=== PATIENT | female | born 1960 | race Caucasian/White ===

== ENCOUNTER 2024-04-24 11:05 | Emergency (ER) | payer OTHER, SELFPAY ==
--- NOTE | ~2024-04-24 | XR_ITS ---
EXAMINATION: XR foot RT min 3V DATE: 04/24/2024 11:44 INDICATION: Hyperflexion injury to the distal right foot TECHNIQUE: Dorsoplantar, two oblique and lateral views of the right foot were obtained. COMPARISON: None. FINDINGS: Minimal distraction of an intra-articular avulsion fracture at the medial base of the right second pr oximal phalanx involving the footplate of the medial collateral ligament. There is no significant fra cture gap or incongruity at the articular surface. 2 mm widening of the metaphyseal side of the fract ure plane. Additional nearly identical appearing intra-articular avulsion fracture also the medial si de of the base of the fourth proximal phalanx. No other fractures identified. Mild polyarticular oste oarthritis at the first metatarsophalangeal and a few of the tarsal metatarsal and interphalangeal angelito ints. Moderate-sized Achilles calcaneal spur. Small osteophyte and adjacent heterotopic ossification at the dorsolateral margin of the anterior process of the calcaneus likely sequela of chronic injury to the bifurcate ligament. IMPRESSION: 1. Minimally distracted medial collateral ligament avulsion fractures at the medial bases of the righ t second and fourth proximal phalanges. Reviewed, dictated and finalized at location A. IMPRESSION: 1. Minimally distracted medial collateral ligament avulsion fractures at the me dial bases of the right second and fourth proximal phalanges.
[2024-04-24 11:12] VITALS: BP 171/91; PULSE 85; RESP 16; TEMP 36.1; O2SAT 100
--- NOTE | 2024-04-24 11:35 | ED.LOWEXIN ---
HPI - Extremity Injury (Lower) General Chief Complaint: Extremity Injury, Lower Stated Complaint: Right Foot Injury History of Present Illness HPI Narrative: Patient presents with right foot pain after stopping at the pool yesterday. Patient is states it hurts to walk on her right foot patient denies any other injuries. Related Data Home Medications Medication Instructions Recorded Confirmed atorvastatin 10 mg tablet 1 mg PO Q48H 04/24/24 04/24/24 estradiol 1 mg tablet 1 mg PO DAILY 04/24/24 04/24/24 levothyroxine 150 mcg tablet 150 mcg PO DAILY 04/24/24 04/24/24 losartan 25 mg tablet 25 mg PO BID 04/24/24 04/24/24 metformin 500 mg tablet 500 mg PO DAILY 04/24/24 04/24/24 metoprolol succinate 25 mg 25 mg PO DAILY 04/24/24 04/24/24 tablet,extended release 24 hr Allergies Allergy/AdvReac Type Severity Reaction Status Date / Time codeine AdvReac Severe Nausea and Verified 04/24/24 11:23 Vomiting tramadol [From Ultram] AdvReac Severe Nausea and Verified 04/24/24 11:23 Vomiting Review of Systems Review of Systems: CONSTITUTIONAL: Denies fever, chills, or sweats. EYES: Denies visual changes, redness, or discharge. ENT: Denies rhinorrhea, congestion, sore throat, or otalgia. CARDIOVASCULAR: Denies chest pain, palpitations, or edema. RESPIRATORY: Denies cough or dyspnea. GASTROINTESTINAL: Denies abdominal pain, nausea, vomiting, or diarrhea. GENITOURINARY: Denies dysuria or hematuria. SKIN: Denies rash or itching. MUSCULOSKELETAL: Denies back pain, joint pain, or myalgia. NEUROLOGIC: Denies headache, numbness, or weakness. PSYCHIATRIC: Denies anxiety or depression. PMFSH Comments At time of signature, agree with nursing past medical, surgical, social and family history. There is no relevant family history pertinent to the presenting complaint Exam Narrative: GENERAL: Well-appearing, well-nourished, and in no acute distress. HEAD: Normocephalic, atraumatic. EYES: PERRLA and EOMI. ENT: Nares clear, no rhinorrhea or epistaxis. Mucous membranes moist. NECK: Supple. CHEST: Clear to auscultation. No respiratory distress. HEART: Regular rate and rhythm. No murmur heard. Normal peripheral pulses. ABDOMEN: Soft, nontender, nondistended, normal active bowel sounds. EXTREMITIES: Normal range of motion. No edema.right footSKIN INTACT. NORMAL DP PULSE, NORMAL CAP REFILL. NORMAL SENSATION. SKIN: Warm, dry, no rash. NEURO: No focal deficits. Alert and oriented x3. Wagoner Coma Scale Eye Opening: Spontaneous 4 Kobe Coma Scale Motor: Obeys Commands 6 Kobe Coma Scale Verbal: Oriented 5 Wagoner Coma Scale Total 15 Course Course Level of Care: Express Care Visit Vital Signs Vital signs: Vital Signs Temperature 36.1 C L 04/24/24 11:12 Pulse Rate 85 04/24/24 11:12 Respiratory Rate 16 04/24/24 11:12 Blood Pressure 171/91 H 04/24/24 11:12 Pulse Oximetry 100 04/24/24 11:12 Oxygen Delivery Room Air 04/24/24 11:12 Temperature 36.1 C L 04/24/24 11:12 Pulse Rate 85 04/24/24 11:12 Respiratory Rate 16 04/24/24 11:12 Blood Pressure 171/91 H 04/24/24 11:12 Pulse Oximetry 100 04/24/24 11:12 Oxygen Delivery Room Air 04/24/24 11:12 MDM - Extremity Injury (Lower) Imaging Data Radiologist's impression: Minimally distracted medial collateral ligament avulsion fractures at the medial bases of the right second and fourth proximal phalanges. Discharge Plan Discharge Clinical Impression: Injury of foot, right Patient Disposition: Home, Self-Care Condition: Stable Instructions: Foot Contusion (ED) Additional Instructions: Ice to the area 20-30 minutes 4-6 times a day Elevate above heart orthopedic splint as directed for comfort for the next 5-7 days follow up with orthopedic director information security Dr Oneal call office in am for follow up appointment Tylenol for lesser pain Ibuprofen regularly for the next 2-3 days for the inflammation Follow-up with PCP if fu
== END 2024-04-24 12:10 | disposition home or self-care (01) ==
PROVIDERS: Emergency Provider Nurse Practitioner Family; PCP Family Medicine
DX: S99.921A Unspecified injury of right foot, initial encounter (principal); X58.XXXA Exposure to other specified factors, initial encounter; E78.00 Pure hypercholesterolemia, unspecified; E11.9 Type 2 diabetes mellitus without complications; E89.0 Postprocedural hypothyroidism; Z85.850 Personal history of malignant neoplasm of thyroid
CPT/HCPCS: 73630; 99213; G0463

== ENCOUNTER 2024-04-27 12:52 | Outpatient (CLI) | payer OTHER, SELFPAY ==
--- NOTE | ~2024-04-27 | CT_ITS ---
EXAMINATION: CT foot RT wo con DATE: 04/27/2024 13:15 INDICATION: Right foot pain. TECHNIQUE: Computed tomography (CT) of the right foot was performed without intravenous contrast. Aut omated exposure control and iterative reconstruction technique were employed. The dose-length product was 302.28 mGy-cm. COMPARISON: Right foot radiograph 04/24/2024 FINDINGS: There are avulsion fractures of the medial bases of the second and fourth proximal phalange s in near-anatomic alignment. There is an old fracture of anterior process of calcaneus with nonunion . 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 There is mild osteoarthritis of some of the mi dfoot joints and interphalangeal joints. There are enthesophytes at the posterior and plantar aspects of calcaneal tuberosity. Achilles tendinopathy is noted. IMPRESSION: 1. Avulsion fractures of the medial bases of the second and fourth proximal phalanges. Reviewed, dictated and finalized at location A. IMPRESSION: 1. Avulsion fractures of the medial bases of the second and fourth proximal pha langes.
== END 2024-04-27 12:53 ==
LOC: GOSHIMG 12:53
PROVIDERS: PCP Family Medicine; Visit Provider Orthopaedic Surgery
DX: S92.511D Displaced fracture of proximal phalanx of right lesser toe(s), subsequent encounter for fracture with routine healing (principal); X58.XXXD Exposure to other specified factors, subsequent encounter
CPT/HCPCS: 73700

== ENCOUNTER 2025-10-01 15:16 | Emergency (ER) | payer MEDICARE, SELFPAY ==
--- NOTE | ~2025-10-01 | XR_ITS ---
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 Findings: Nondisplaced fracture of the distal radius with intra-articular extension. Severe degenerative changes of the first metacarpal carpal joint Soft tissue swelling. Impression: Distal radial fracture Reviewed, dictated and finalized at location P. SHELLER Impression: Distal radial fracture
--- NOTE | ~2025-10-01 | XR_ITS ---
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 Findings: Nondisplaced fracture of the distal radius with intra-articular extension. No significant degenerative changes. Soft tissue swelling. Impression: Distal radial fracture Reviewed, dictated and finalized at location P. 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
--- OUTSIDE RECORDS SUMMARY | 2025-10-01 15:21 | XMS_ITS | Encounter Summary ---
Author Organization [facility] Address [address] [place] [address] Phone Care Team Providers Care Skewer Up Name Role Phone Erik Davis MD Primary Care Provider [phone] Kentrell Fenton MD Unavailable Shankar Álvarez MD Unavailable Eugenio Thomason MD Unavailable [phone] Arnaldo Headley MD Unavailable [phone] Estefani Thorne APRN, PATIENTS TRANSPORTER Unavailable Juanjose Woodson MD Unavailable Reason for Visit * Reason Comments Medication Refill Encounter Details Date Type Department Care Team (Late st Contact Info) Description [facility]/12/[address] [facility] [facility] [address] [place] [address] Reanna Mchugh, [facility] [address] [place] [address] Medication Refill Social History Tobacco Use Types Packs/Day Years Used Date Smoking Tobacco: Every Day Smokeless Tobacco: Never Alcohol Use Standard Drinks/Week Comments Yes 0 (1 standard drink = 0.6 oz pur e alcohol) occasionally PHQ-2 Answer Date Recorded Total Score - Questions 1-9 0 07/0 05/2020 Comments No Sex and Gender Information Value Date Recorded Sex Assigned at Not on file Legal Sex Female 12:41 AM CDT Gender Identity Not on file Sexual Orientation Not on file documented as of this encounter Miscellaneous Notes * Telephone Encounter - Laxmi Machado RN - 10/12/2020 11:43 AM CST Medication failed the protocol, provider to review and approve the medication order if appropriate. Requested Prescriptions Pending Prescriptions Disp Refills estradiol (ESTRACE) 1 MG Tablet [Pharmacy Med Name: ESTRADIOL 1 MG TABLET] 90 Tab 3 Sig: TAKE 1 TABLET BY MOUTH EVERY DAY Not Delegated - CLOSING SPECIALIST: Estrogens Failed - 10/12/2020 8:45 AM Failed - This refill cannot be delegated Passed - Valid encounter within last 12 months Past Office Visits Recent Outpatient Visits 5 months ago Claudication of both lower extremities (HCC) [facility] Erik Monroy MD 1 year ago Thyroid nodule [facility] Erik Monroy MD 1 year ago Hypertension, essential [facility] Erik Monroy MD 2 years ago Hyperlipidemia, unspecified hyperlipidemia type [facility] Erik Monroy MD 2 years ago Enlarged thyroid [facility] Erik Monroy MD Upcoming Appointments Future Appointments In 3 weeks Erik Davis MD [facility] Medical [facility] Family Medicine [facility] In 2 months Kentrell Fenton MD [facility] Medical [facility] AGRICULTURAL EDUCATION PROFESSOR - Recent and Past Visits Recent Visits Date Type Provider Dept 05/08/20 Office Visit Erik Davis MD [facility] 10/06/19 Office Visit Erik Davis MD [facility] Showing recent visits within past 460 days with a meds authorizing provider and meeting all other requirements Future Appointments Date Type Provider Dept 11/08/20 Appointment Erik Davis MD [facility] Showing future appointments within next 90 days with a meds authorizing provider and meeting all other requirements Passed - Last BP in normal range BP Readings from Last 1 Encounters: 05/08/20 126/78 STANT BANQUET MANAGER documented in this encounter Plan of Treatment Upcoming Encounters Date Type Department Care Team (Late st Contact Info) Description 11/14/2025 1:45 PM ASSISTANT BANQUET MANAGER Office Visit [facility] Medical Group - Family Medicine [facility] [address] [place] [address] Erik Davis MD [address] [facility] [address] [place] [address] 12/11/2025 8:15 AM ASSISTANT BANQUET MANAGER Office Visit [facility] Endocrinology [facility] [address] [place] [address] Kentrell Fenton MD [address] [place] [address] 03/06/2026 10:00 AM CDT Office Visit [facility] On[facility] [address] [place] [phone] Eugenio Thomason MD [address] [place] [address] Discharge Disposition: Discharged to home or Selfcare documented as of this encounter Visit Diagnoses Not on filedocumented in this encounter Additional Health Concerns Assessment Noted Time PHQ-9 Depression Total Score: 0 05/08/20 20 1:06 PM CDT documented as of this encounter Care Teams Skewer Up Relationship Specialty Start Date End Date Erik Davis MD [address] [facility] [address] [place] [address] PCP - General Family Medicine 10/17/15 Kentrell Fenton MD [address] [facility] [address] [place] [address] Consulting Physician Endocrinology 08/22/22 Shankar Álvarez MD [address] [place] [address] Consulting Physician Medical Oncology 10/28/22 Eugenio Thomason MD [address] [place] [address] Consulting Physician Radiation Oncology 10/28/22 Arnaldo Headley MD [address] [facility] [address] [place] [address] Consulting Physician Otolaryngology 10/31/22 Estefani Thorne APRN, PATIENTS TRANSPORTER [address] [facility] [address] [place] [address] Nurse Practitioner Advanced Practice Nurse 05/27/22 Juanjose Woodson MD [address] [address] Consulting Physician Colon and Rectal Surgery 03/21/24 documented as of this encounter
--- OUTSIDE RECORDS SUMMARY | 2025-10-01 15:21 | XMS_ITS | Clinical Summary ---
Author Organization [facility] Address [address] [place] [address] Care Team Providers Care Commercial Field Inspector Name Role Phone Erik Davis MD Primary Care Provider [phone] Source Comments [facility],non-owned Affiliates and Associated Physician Practices is amultiple site organization consisting of ambulatory clinics and hospital sitesin [place], [place], [place] and [place]. This disclosure is being madepursuant to the Care Everywhere program and may not contain all information available regarding this patient. Last updated 18.[facility] [employer] Allergies Active Allergy Reactions Criticality Noted Date Comments Acetaminophen-Codeine Urticaria,Rash Medium 02/29/2016 Tramadol Nausea and/or Vomiting Low 08/06/2017 Medications * Be aware that medications may not be up to date on this document. Alwaysverify current medications with the patient. amLODIPine (NORVASC) 5 MG tablet Take 1 (one) tablet by mouth once daily 8 Active atorvastatin (LIPITOR) 10 MG tablet Take 1 (one) tablet by mouth every 2 days 8 Active metoprolol succinate XL 24hr (TOPROL XL) 25 MG tablet Take 1 (one) tablet by mouth once daily 3 8 Active Aspirin (ASPIR-81 PO) Take 81 mg by mouth once daily Active cetirizine (ZyrTEC) 10 MG tablet Take 1 (one) tablet by mouth once daily Active multivitamin daily tablet Take 1 (one) tablet by mouth daily with food Active Brooklyn-3 Fatty Acids (FISH OIL) 500 MG capsule Take by mouth 2 times daily Active naproxen sodium (ANAPROX DS) 550 MG tablet Take 1 (one) tablet by mouth 2 times daily as needed for Pain Active Cinnamon 500 MG Take 1 (one) tablet by mouth 2 times daily Active albuterol HFA (Proventil; Ventolin; Proair) 108 (90 Base) MCG/ACT inhaler Inhale 2 (two) puffs by mouth every 4 hours as needed 2 Active fluticasone-vi lanterol (Breo Ellipta) 100-25 MCG/ACT inhaler Inhale 1 (one) puff by mouth once daily 2 Active oxyCODONE, immediate release, (Roxicodone) 5 MG tablet Take 1 (one) tablet by mouth every 4 hours as needed 15 tablet 2 Active Additional Information Patient not taking.Reported on 11/19/2022 acetaminophen (Tylenol) 325 MG tablet Take 2 (two) tablets by mouth every 6 hours as needed Maximum allowable Acetaminophen amount = 4 Grams (4000 mg) / 24 hours. 40 tablet 1 2 Active ibuprofen (Motrin) 600 MG tablet Take 1 (one) tablet by mouth every 6 hours as needed 40 tablet 1 2 Active senna (Senokot) 8.6 MG tablet Take 1 (one) tablet by mouth once daily as needed for Constipation 20 tablet 1 2 Active Additional Information Patient not taking.Reported on 10/17/2022 calcitriol (Rocaltrol) 0.5 MCG capsule Take 1 (one) capsule by mouth 2 times daily 30 capsule 1 2 Active Additional Information Patient not taking.Reported on 11/19/2022 estradiol (Estrace) 1 MG tablet Take 1 (one) tablet by mouth once daily 3 Active levothyroxine (Synthroid) 150 MCG tablet Take 1 (one) tablet by mouth once daily 3 Active losartan (Cozaar) 25 MG tablet Take 1 (one) tablet by mouth 2 times daily 3 Active metFORMIN (Glucophage) 500 MG tablet Take 1 (one) tablet by mouth once daily 3 Active Active Problems Problem Noted Date Diagnosed Date Mass of right side of neck 10/13/2022 Neck pain 07/07/2018 Chronic prescription benzodiazepine use 03/10/20 18 Chronic joint pain 03/10/2018 Obesity (BMI 30-39.9) 12/09/2017 Abnormal thyroid ultrasound 10/05/2017 Thyroid nodule 09/17/2017 Thoracolumbar back pain 08/06/2017 Anxiety 11/11/2016 Hyperlipidemia 08/04/2016 Hypertension, essential 08/04/2016 Tobacco abuse 08/04/2016 Dyslipidemia 03/05/2016 Non morbid obesity 03/05/2016 Screening for breast cancer 03/05/2016 Type 2 diabetes mellitus, controlled 03/05/2016 Immunizations Immunization Administration Dates Next Due INFLUENZA VACCINE, TRIV. (AF LURIA, FLUZONE TRIVALENT; 6MO+) (IIV3) 11/02/2012 Covid Moderna primary monova lent 12+ yr 0.5mL 01/24/2021,12/30/2020 FLU VACCINE QUAD IIV4 SPLIT 0.25 ML IM 07/15/2016 HIB VACCINE 11/02/2012 INFLUENZA VACCINE, QUADR. (F LUZONE; FLULAVAL; FLUARIX; AFLURIA QUADRIVALENT; 6MO+), 0.5 ML (IIV4) 08/03/2023,08/28/2022,08/06/2021,2019,10/06/2019,10/07/2018,09/17/2017 PNEUMOCOCCAL PPSV23 11/02/2008 TD (AGE 7-ADULT) 11/02/2005 Family History Medical History Relation Name Comments Cancer - Other Father Cirrhosis Father Hyperlipidemia Father Hypertension Father CVA Mother Cancer - Other Mother Hypertension Mother Thyroid Disease Mother Relation Name Status Comments Father Mother Social History Tobacco Use Types Packs/Day Years Used Date Smoking Tobacco: Every Day Cigarettes 0.5 40 Smokeless Tobacco: Never Tobacco Cessation:Ready to Q uit: Not Asked; Counseling Given: Not Answered Alcohol Use Standard Drinks/Week Comments Not Currently 0 (1 standard drink = 0.6 oz pur e alcohol) AUDIT-C Answer Date Recorded Q1: How often do you have a drink containing alcohol? Never 10/13/2022 Q2: How many drinks containi ng alcohol do you have on a typical day when you are drinking? Patient does not drink Q3: How often do you have si x or more drinks on one occasion? Never 10/13/2022 Hunger Vital Sign Answer Date Recorded Within the past 12 months, y ou worried that your food would run out before you got the money to buy more. Never true 10/14/20 22 Within the past 12 months, t he food you bought just didn't last and you didn't have money to get more. Never true 10/14/2022 Comments Unknown Sex and Gender Information Value Date Recorded Sex Assigned at Not on file Legal Sex Female 2:13 PM CDT Gender Identity Not on file Sexual Orientation Not on file Last Filed Vital Signs Vital Sign Reading Time Taken Comments Blood Pressure 163/88 11/25/2023 1:00 PM INFRASTRUCTURE PROJECT MANAGER Pulse 122 11/25/2023 1:00 PM INFRASTRUCTURE PROJECT MANAGER Temperature 36.4 C (97.6 F) 10/15/2022 8:24 AM INFRASTRUCTURE PROJECT MANAGER Respiratory Rate 19 10/15/2022 8:24 AM INFRASTRUCTURE PROJECT MANAGER Oxygen Saturation 97% 10/15/2022 8:24 AM INFRASTRUCTURE PROJECT MANAGER Inhaled Oxygen Concentration - - Weight 93.9 kg (207 lb) 11/25/2023 1:00 PM INFRASTRUCTURE PROJECT MANAGER Height 170.2 cm (5' 7) 11/25/2023 1:00 PM INFRASTRUCTURE PROJECT MANAGER Body Mass Index 32.42 11/25/2023 1:00 PM INFRASTRUCTURE PROJECT MANAGER Plan of Treatment Health Maintenance Due Date Last Done Comments COLOGUARD (AGES 45-75) - COLON CA SCREENING 1960 COLON MONITORING 1960 COLONOSCOPY - COLON CA SCREENING 1960 CT COLONOGRAPHY - COLON CA SCREENING 1960 Colorectal Cancer Screening 1960 FIT - COLON CA SCREENING 1960 FLEX SIG - COLON CA SCREENING 1960 HIV SCREENING 1975 HEPATITIS C SCREENING 09/06/1978 PNEUMOCOCCAL VACCINE 50+ (2 of 2 - PCV) 11/02/2009 11/02/2008 ZOSTER VACCINE (1 of 2) 2010 DTAP/TDAP/TD VACCINES (2 - Td or Tdap) 11/02/2015 11/02/2005 LUNG CANCER SCREENING 09/16/2022 09/16/2021 DIABETES RETINOPATHY SCREENING 09/17/2022 DIABETES-FOOT EXAM WITH MONOFILAMENT 09/17/2022 DIABETES-HGB A1C 04/14/2023 10/14/2022 DIABETES-SERUM CREATININE 09/17/2023 09/17/2022 DEPRESSION SCREENING 11/02/2024 DIABETES - URINE PROTEIN SCREENING 11/02/2024 MAMMOGRAM 05/18/2025 05/18/2023, 05/02, 11/07/2019, Additional history exists COVID-19 VACCINE ( - 2024- season) 2025 08/25/2022, 08/27/2021, 01/24/2021, Additional history exists INFLUENZA VACCINE (#1) 2025 , 08/28/2022, 08/06/2021, Additional history exists Respiratory Syncytial Virus (RSV) Vaccine Pt: or over 60 yrs (1 - 1-dose 75+ series) 2035 HIB VACCINE Aged Out 11/02/2012 No longer eligi ble based on patient's age to complete this topic BONE DENSITY TESTING Completed 05/18/2023, 05/18/20 23 HEPATITIS B VACCINE Aged Out No longe r eligible based on patient's age to complete this topic HPV VACCINE Aged Out No longer eligi ble based on patient's age to complete this topic MENINGOCOCCAL (Group B) VACCINE SHARED DECISION-MAKING Aged Out No longer eligible based on patient's age to complete this topic MENINGOCOCCAL GROUPS A/C/Y/W VACCINE Aged Out No longer eligible based on patient's age to complete this topic Procedures Procedure Name Priority Date/Time Associated Diagnosis Comments HEMOGLOBIN A1C Routine 10/14/2022 3:27 AM INFRASTRUCTURE PROJECT MANAGER BASIC METABOLIC PANEL (CALCIUM TOTAL) Routine 09/17/2022 3:37 PM INFRASTRUCTURE PROJECT MANAGER Pre-op evaluation from Last 3 Months or Most Recently Relevant to Health Maintenance Results * (ABNORMAL) HEMOGLOBIN A1C (10/14/2022 3:27 AM INFRASTRUCTURE PROJECT MANAGER) Hemoglobin A1c 6.2(H) <=5.6 % 10/14/2022 10:06 AM [facility] Estimated Average Glucose 131 mg/dL 10/14/2022 10:06 AM [facility] Comment: HbA1c Interpretation: Normal : < 5.7% Pre-diabetes: 5.7-6.4% Diabetes: Equal to or greater than 6.5% Test results diagnostic of diabetes should be repeated for confirmation. Treatment target values recommended by ADA and other clinical organizations should be used to evaluate metabolic control in patients. Reference: [place] Diabetes Association, Standards of Care in Diabetes -2020 In patients 70 years and older consider HbA1c target range of 7.0-7.5% (Reference: Kelby Villavicencio et al. LIYAHDA. 2012) The Sebia assay for the measurement of HbA1c is a National Glycohemoglobin Standardization Program (NGSP) certified method. Blood BLOOD SPECIMEN / Unknown Lab Venipuncture / Unknown 10/14/2022 3:27 AM INFRASTRUCTURE PROJECT MANAGER 10/14/2022 4:17 AM INFRASTRUCTURE PROJECT MANAGER us Arnaldo Headley MD LAB - CHEMISTRY ORDERABLES Fi nal Result [facility] [address] [place] [address], [facility] [phone] * (ABNORMAL) BASIC METABOLIC PANEL (CALCIUM TOTAL) (09/17/2022 3:37 PM INFRASTRUCTURE PROJECT MANAGER) BUN 13 7 - 26 mg/dL 09/17/2022 4:28 PM [facility] Creatinine 0.57 0.56 - 0.96 mg/dL 09/17/2022 4:28 PM [facility] Sodium 139 136 - 145 mmol/L 09/17/2022 4:28 PM [facility] Potassium 4.1 3.5 - 4.5 mmol/L 09/17/2022 4:28 PM [facility] Chloride 104 98 - 107 mmol/L 09/17/2022 4:28 PM [facility] CO2 25 22 - 29 mmol/L 09/17/2022 4:28 PM [facility] Glucose 104 70 - 115 mg/dL 09/17/2022 4:28 PM [facility] Calcium 10.8(H) 8.4 - 10.2 mg/dL 09/17/2022 4:28 PM [facility] Anion Gap 14 8 - 18 09/17/2022 4:28 PM [facility] BUN/Creatinine Ratio 23 7 - 23 09/17/2022 4:28 PM [facility] Osmolality Calculated 288 270 - 300 mOsm/kg 09/17/2022 4:28 PM INFRASTRUCTURE PROJECT MANAGER [facility] eGFR by CKD-EPI >90 >=90 mL/min/1.7 3 m2 09/17/2022 4:28 PM INFRASTRUCTURE PROJECT MANAGER [facility] Blood BLOOD SPECIMEN / Unknown Lab Venipuncture / Unknown 09/17/2022 3:37 PM INFRASTRUCTURE PROJECT MANAGER 09/17/2022 3:59 PM INFRASTRUCTURE PROJECT MANAGER us Joy Montanez CREDIT COLLECTIONS MANAGER-TRIPLE AIR VALVE TESTER LAB - CHEMISTRY ORDERABL ES Final Result [facility] [address] [place] [address], [facility] [phone] from Last 3 Months or Most Recently Relevant to Health Maintenance Insurance [employer] Advance Directives * Full Code (Latest Code Status on File) Date Activated Date Inactivated Comments 10/13/2022 7:28 PM 10/15/2022 1:22 PM Care Teams Commercial Field Inspector Relationship Specialty Start Date End Date Erik Davis MD PCP - General 08/10/18
--- OUTSIDE RECORDS SUMMARY | 2025-10-01 15:21 | XMS_ITS | Clinical Summary ---
Author Organization [facility] Address [address] [place] [address] Phone Care Team Providers Care Truck Assembler Name Role Phone Unavailable Unavailable Unavailable Reason for Visit and Chief Complaint The Chief Complaint is: annual Problems Includes: Problems addressed during this encounter and other active Problems Current Visit Onset Date Resolved Date Provider Emiliana sanchez Status History of Abnormal Pap Smear of Cervix 06/07/2013 BUTCH LEON RN [facility] Active Last Documented On 06/07/2013 11:01AM ; [facility] Note: Unchanged History of Cervical Dysplasia 06/07/2013 BUTCH LEON RN [facility] Active Last Documented On 06/07/2013 11:01AM ; [facility] Note: Unchanged History of Diabetes Mellitus Type 2 06/07/2013 BUTCH LEON RN [facility] Active Last Documented On 06/07/2013 11:01AM ; [facility] Note: Unchanged History of Essential Hypertension Benign 06/07/2013 BUTCH LEON RN [facility] Active Last Documented On 06/07/2013 11:01AM ; [facility] Note: Unchanged History of Human Papilloma Virus Infection 06/07/2013 BUTCH LEON RN [facility] Active Last Documented On 06/07/2013 11:01AM ; [facility] Note: Unchanged History of Hyperlipidemia 06/07/2013 BUTCH LEON RN [facility] Active Last Documented On 06/07/2013 11:01AM ; [facility] Note: Unchanged Smoking Cigarettes 06/07/2013 BUTCH AN RN [facility] Active Last Documented On 06/07/2013 11:01AM ; [facility] Note: Unchanged Plan of Treatment - OTHER - Last Documented On 06/07/2013 11:01AM ; [facility] PHY ORDER/COMMENT RELEASE OF INFORMATION PCP FOR SEROLOGY LIPIDS, HGB A1C, LIVER ENZYMES ETC 2011 AND 2012 PHY ORDER/COMMENT 1 YR Follow-up PLEASE REMOVE CODE 82091 FIT ENTERED IN ERROR THANKS - Last Documented On 06/07/2013 11:01AM ; [facility] ? ASYMPT POSTMENO STATUSRadiology at Hosp: DEXA (to be scheduled) - Last Documented On 06/07/2013 11:01AM ; [facility] ? ROUTINE GYNECOLOGICAL EXAMLab: SUREPATH (REFL) - Last Documented On 06/07/2013 11:01AM ; [facility] ? SCREEN MAMMOGRAM NECRadiology at Hosp/*MAMMOGRAPHY: Mammography with u/s if indicated Instructions: Additional images/ultrasounds if indicated Please send to PCP - Last Documented On 06/07/2013 11:01AM ; [facility] PT TO CALL WITH ANY CHANGE IN STATUS PAP RESULTS TO BE CALLED TO PT , AND WILL RE VISIT ERT IF PT STOPS SMOKING 90 + DAYS ALL QUESTIONS ANSWERED WITH UNDERSTANDING VERBALIZED BY PT. - Last Documented On 06/07/2013 11:01AM ; [facility] RTC 1 YEAR - Last Documented On 06/07/2013 11:01AM ; [facility] Pending Tests Order Diagnosis Results Due Ordering P rovider Radiology @ other DEXA (to be scheduled) ASYMPT POSTMENO STATUS 06/21/13 BUTCH LEON RN [facility] Last Documented On 3 3:28PM ; [facility] Radiology @ other - *MAMMOGRAPHY Mammography with u/s if indicated SCREEN MAMMOGRAM NEC 06/21/13 BUTCH LEON RN [facility] Last Documented On 3 3:28PM ; [facility] Lab SUREPATH (REFL) 07/07/13 BUTCH AN RN [facility] Last Documented On 3 11:01AM ; [facility] Instructions to patient Instructions for patient : B reast Self Exam discussed and technique reviewed Last Documented On 3 8:34AM ; [facility] Instructed to call if excess melvin bleeding or abdominal/pelvic pain Last Documented On 3 8:34AM ; [facility] Instructions For Patient: Mo nthly Self Breast Exam Last Documented On 3 8:34AM ; [facility] Recommend diet and exercise at least 30 min three times per week Last Documented On 3 8:34AM ; [facility] Recommend CBC, TSH, fasting glucose, fasting lipid panel if patient aged 25 or older Last Documented On 3 8:34AM ; [facility] Recommend preventative vacci nation including but not limited to influenza/flu vaccine, DTP, Rubella, Hepatitis B vaccination series Last Documented On 3 8:34AM ; [facility] Education and Decision Aids were provided during visit for: Discussed smoking and drug u se PT DESIRES TO QUIT SMOKING AND WILL CONTACT DR. JASON FOR ZBAN RX CHANTIX NOT A COVERED RX Last Documented On 3 10:56AM ; [facility] Patient Education: Daily amado cium and vitamin D Last Documented On 3 8:34AM ; [facility] Patient Education: weight be aring exercise Last Documented On 3 8:34AM ; [facility] Patient will maintain adequa te intake of dietary Ca+ and Mg+ Last Documented On 3 8:34AM ; [facility] Assessments Includes: Assessments from this encounter Findings - MAMMOGRAM SCREENING - Last Documented On 06/07/2013 11:01AM ; [facility] - Routine gynecological exam - Last Documented On 06/07/2013 11:01AM ; [facility] - NORMAL FEMALE EXAM - Last Documented On 06/07/2013 11:01AM ; [facility] - Risk: tobacco use - Last Documented On 06/07/2013 11:01AM ; [facility] Instructions Includes: Instructions from this encounter Instructions to patient Instructions for patient : B reast Self Exam discussed and technique reviewed Last Documented On 3 8:34AM ; [facility] Instructed to call if excess melvin bleeding or abdominal/pelvic pain Last Documented On 3 8:34AM ; [facility] Instructions For Patient: Mo nthly Self Breast Exam Last Documented On 3 8:34AM ; [facility] Recommend diet and exercise at least 30 min three times per week Last Documented On 3 8:34AM ; [facility] Recommend CBC, TSH, fasting glucose, fasting lipid panel if patient aged 25 or older Last Documented On 3 8:34AM ; [facility] Recommend preventative vacci nation including but not limited to influenza/flu vaccine, DTP, Rubella, Hepatitis B vaccination series Last Documented On 3 8:34AM ; [facility] Education and Decision Aids were provided during visit for: Discussed smoking and drug u se PT DESIRES TO QUIT SMOKING AND WILL CONTACT DR. JASON FOR ZBAN RX CHANTIX NOT A COVERED RX Last Documented On 3 10:56AM ; [facility] Patient Education: Daily amado cium and vitamin D Last Documented On 3 8:34AM ; [facility] Patient Education: weight be aring exercise Last Documented On 3 8:34AM ; [facility] Patient will maintain adequa te intake of dietary Ca+ and Mg+ Last Documented On 3 8:34AM ; [facility] Medical Equipment - Implanted Devices Includes: Current Devices No Medical Equipment Recorded Medications Includes: Medications discussed during this encounter and other current Medications Current Medications (continue as prescribed) Benicar 20 MG OR TABS 06/07/2013 Provider: Diagnosis: Last Documented On 06/07/2013 8:38AM By CHAZ MORRELL ; [facility] Estrace 1 MG OR TABS 06/07/2013 Provider: Diagnosis: Last Documented On 06/07/2013 8:38AM By CHAZ MORRELL ; [facility] metFORMIN HCl 500 MG TABS 06/07/2013 Provider: Diagnosis: Last Documented On 06/07/2013 8:39AM By CHAZ MORRELL ; [facility] Lipitor 10 MG OR TABS 06/07/2013 Provider: Diagnosis: Last Documented On 06/07/2013 8:39AM By CHAZ MORRELL ; [facility] Trilipix 135 MG OR CPDR 06/07/2013 Provider: Diagnosis: Last Documented On 06/07/2013 8:39AM By CHAZ MORRELL ; [facility] Aspirin 81 MG OR TABS 06/07/2013 Provider: Diagnosis: Last Documented On 06/07/2013 8:39AM By CHAZ MORRELL ; [facility] ZyrTEC Allergy 10 MG OR CAPS 06/07/2013 Provider: Diagnosis: Last Documented On 06/07/2013 8:40AM By CHAZ MORRELL ; [facility] Fish Oil OIL 06/07/2013 Provider: Diagnosis: Last Documented On 06/07/2013 8:40AM By CHAZ MORRELL ; [facility] Medications Administered Includes: Administered Medications from this encounter No Administered Medications Recorded Vital Signs Includes: Vital Signs from this encounter Vital Name 06/07/2013 08:26A Blood Pressure Sitting L 138/80 BP Cuff Size Regular Height (in) 67 Weight (lb) 214 Body Mass Index (kg/m2) 33.5 Body Surface Area (m2) 2.1 Last Documented: On 06/07/2013 8:29AM ; [facility] Results Includes: Results discussed during this encounter No Results Recorded For Specified Dates History of Present Illness Includes: History of Present Illness from this encounter No History of Present Illness Recorded Social History Description 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[employer] 06/07/2013 Last Documented On 3 10:58AM ; [facility] Age of 1st intercourse was was 17 2012 Last Documented On 3 11:01AM ; [facility] Alcohol use occ 06/07/2013 Last Documented On 3 11:01AM ; [facility] Cigarette smoking 06/07/2013 Last Documented On 3 11:01AM ; [facility] Cigarette smoking 1 pack(s)/day 06/07/20 13 Last Documented On 3 11:01AM ; [facility] Exercising regularly 06/07/2013 Last Documented On 3 11:01AM ; [facility] In monogamous relationship 06/07/2013 Last Documented On 3 11:01AM ; [facility] Not using drugs 06/07/2013 Last Documented On 3 11:01AM ; [facility] Sexually active 06/07/2013 Last Documented On 3 11:01AM ; [facility] Sexually active with 1 partners in the l ast year 06/07/2013 Last Documented On 3 11:01AM ; [facility] Smoking status : Current everyday smoker 06/07/2013 Last Documented On 3 11:01AM ; [facility] Procedures and Surgical History Includes: Procedures from this encounter Procedures Code Diagnosis Performing Provider Service L ocation Service Date review immunization schedule Last Documented On 3 8:34AM ; [facility] explanation of plan Last Documented On 3 8:34AM ; [facility] junk-free diet including sodas Last Documented On 3 8:34AM ; [facility] medical regimen review Last Documented On 3 8:34AM ; [facility] Urged Exercise and Diet , exercise at le ast 30 min three times per week Last Documented On 3 8:34AM ; [facility] Pt received mammogram during year/prior year G81 11 Last Documented On 3 8:34AM ; [facility] vaginal Pap smear 18121 Last Documented On 3 8:34AM ; [facility] history of abnormal Pap smear of cervix Last Documented On 3 10:54AM ; [facility] Surgical History Last Updated History of total abdominal hysterectomy 1988 DYSPLASIA 06/07/2013 Last Documented On 3 11:01AM ; [facility] Surgical / procedural histor y saliva gland removed 2000 ~left ankle break repair 2010 ~neck fusion 2005 ~left ankle total replacement 201106/07/2013 Last Documented On 3 11:01AM ; [facility] History of hysterectomy 1988 1988 2012 Last Documented On 3 11:01AM ; [facility] Medical History Includes: Medical History addressed during this encounter Description Last Updated PCP DR. JASON 06/07/2013 Last Documented On 3 10:58AM ; [facility] History of cervical dysplasia 06/07/2013 Last Documented On 3 11:01AM ; [facility] History of human papilloma virus infecti on 06/07/2013 Last Documented On 3 11:01AM ; [facility] History of benign essential hypertension 06/07/2013 Last Documented On 3 11:01AM ; [facility] History of type 2 diabetes mellitus 04/2013 Last Documented On 3 11:01AM ; [facility] HTN NIDDM 06/07/2013 Last Documented On 3 8:38AM ; [facility] Vaginal delivery 06/07/2013 Last Documented On 3 11:01AM ; [facility] History of hyperlipidemia 06/07/2013 Last Documented On 3 11:01AM ; [facility] History of obesity 06/07/2013 Last Documented On 3 11:01AM ; [facility] A colonoscopy was performed 04/2013 Last Documented On 3 11:01AM ; [facility] 3 06/07/2013 Last Documented On 3 11:01AM ; [facility] History of menopause 06/07/2013 Last Documented On 3 11:01AM ; [facility] Last mammogram date: 200906/07/2013 Last Documented On 3 11:01AM ; [facility] Last pap smear date 200906/07/2013 Last Documented On 3 11:01AM ; [facility] LMP: 1988 06/07/2013 Last Documented On 3 11:01AM ; [facility] Para 3 06/07/2013 Last Documented On 3 11:01AM ; [facility] Family History Includes: Family History addressed during this encounter Description Last Updated Spouse name: Derek 06/07/2013 Last Documented On 3 11:01AM ; [facility] Family history of hypercholesterolemia d ad 06/07/2013 Last Documented On 3 11:01AM ; [facility] Family history of hypertension mom and d ad 06/07/2013 Last Documented On 3 11:01AM ; [facility] Review of Systems Includes: Review of Systems from this encounter Systemic: General overall feeling. Feeling fine. No symptoms and not tiring easily. No fever, no chills, no night sweats, no unusual bleeding, no post coital bleeding, and no recent weight change. No night sweats and no pain. Head: No headache. Neck: No neck pain and no swollen glands in the neck. Eyes: No vision problems. Breasts: No breast symptoms, no breast lump, no nipple discharge, no pain in breast, and patient performs self breast exams. Cardiovascular: No chest pain or discomfort, no palpitations, no intermittent leg claudication, and no varicosities. Pulmonary: No pulmonary symptoms, no dyspnea, no rapid breathing, no cough, and no wheezing. Gastrointestinal: No heartburn and no indigestion. No nausea, no vomiting, no abdominal pain, and no melena. No diarrhea, no constipation, and no bowel/bladder changes. Genitourinary: No hematuria, no change in urinary frequency, and was not increased. No incomplete emptying of bladder. No urinary loss of control and no dysuria. No genital lesion, no pain during intercourse, and no vaginal dryness. No vaginal discharge. Endocrine: No polydipsia, no temperature intolerance, no hot flashes, libido has not changed, and no loss of hair from the head. Hematologic: No blood clotting problems. Musculoskeletal: No back pain, no muscle aches, and no localized joint pain. Neurological: No dizziness. Psychological: No anxiety, no depression, and a desire to continue living. Skin: No pruritus. No skin lesions and no rash. Allergic and Immunologic: No hay fever. Mental Status Includes: Mental Status from this encounter Description Oriented to time, place, and person No anxiety A desire to continue living Functional Status Includes: Functional Status from this encounter No Functional Status Recorded Physical Exam Includes: Physical Exam from this encounter Allergies Includes: Active Allergies Substance Type Reaction Onset Date Resolved Date Statu s SEASONAL Allergy 06/07/2013 Active Last Documented On 3 8:40AM ; [facility] Encounters Encounter Provider Location Date Check-In Time Check-Out Time Diagnosis NEW BI REPORT DEVELOPER EXAM BUTCH LEON RN [facility] SPORTS BETTING MANAGER 06/07/20 13 8:15AM 9:01AM Normal Female Exam,Risk: Tobacco Use,Routine Gynecological Exam,Other Screening For Malignant Neoplasm of Breast Z12.39 Clinical Notes Includes: Clinical Notes from this encounter No Clinical Notes Recorded
--- OUTSIDE RECORDS SUMMARY | 2025-10-01 15:21 | XMS_ITS | Encounter Summary ---
Author Organization [facility] Address [address] [place] [address] Phone Care Team Providers Care Dry Cleaning Supervisor Name Role Phone Erik Davis MD Primary Care Provider [phone] Kentrell Fenton MD Unavailable Shankar Álvarez MD Unavailable [phone] Eugenio Thomason MD Unavailable [phone] Arnaldo Headley MD Unavailable Estefani Thorne APRN, CNP Unavailable Juanjose Woodson MD Unavailable Reason for Visit * Reason Comments Medication Refill Encounter Details Date Type Department Care Team (Late st Contact Info) Description 03/21/2023 Refill [facility] - Family Medicine [facility] [address] [place] [address] Erik Davis MD [address] [address] Medication Refill Social History Tobacco Use Types Packs/Day Years Used Date Smoking Tobacco: Every Day Cigarettes 1.3 47.1 Started: 1978 Smokeless Tobacco: Never Comments:Cutting down in 202 2 and down 0.5 ppd as of 10/29/2022. Alcohol Use Standard Drinks/Week Comments Yes 0 (1 standard drink = 0.6 oz pur e alcohol) Occasionally/socially. PHQ-2 Answer Date Recorded Total Score - Questions 1-9 0 05/2020 Education Answer Date Recorded What is the highest level of school you have completed or the highest degree you have received? Associate degree: occupational, technical, or vocational program 03/02/2023 Sexually Active Control Partners Comments Yes Comments No Sex and Gender Information Value Date Recorded Sex Assigned at Not on file Legal Sex Female 12:41 AM CDT Gender Identity Not on file Sexual Orientation Not on file COVID-19 Exposure Response Date Recorded In the last 10 days, have yo u been in contact with someone who was confirmed or suspected to have Coronavirus/COVID-19? No / Unsure 03/16/2023 6:40 AM CDT documented as of this encounter Miscellaneous Notes * Telephone Encounter - Cecilia Chairez RN - 03/23/2023 8:23 AM CDT Medication failed the protocol, provider to review and approve the medication order if appropriate. Requested Prescriptions Pending Prescriptions Disp Refills estradiol (ESTRACE) 1 MG Tablet [Pharmacy Med Name: ESTRADIOL 1 MG TABLET] 90 Tablet 2 Sig: TAKE 1 TABLET BY MOUTH EVERY DAY Not Delegated - Estrogen and Estrogen Combinations Protocol Failed - 03/21/2023 1:10 AM Failed - This refill cannot be delegated Failed - Up to date with pap smear Health Maintenance Passed - Visit with relevant provider in past 12 months or upcoming 90 days Recent Visits Date Type Provider Dept 03/09/23 Office Visit Erik Davis MD [facility] 12/08/22 Office Visit Erik Davis MD [facility] 08/28/22 Office Visit Erik Davis MD [facility] 04/28/22 Office Visit Erik Davis MD [facility] Showing recent visits within past 365 days and meeting all other requirements Future Appointments Date Type Provider Dept 06/09/23 Appointment Erik Davis MD [facility] Showing future appointments within next 90 days and meeting all other requirements documented in this encounter Plan of Treatment Upcoming Encounters Date Type Department Care Team (Late st Contact Info) Description 11/14/2025 1:45 PM GOLF INSTRUCTOR Office Visit [facility] Medical [facility] Family Medicine [facility] [address] [place] [address] Erik Davis MD [address] [place] [address] 12/11/2025 8:15 AM GOLF INSTRUCTOR Office Visit [facility] Endocrinology [facility] [address] [place] [phone] Kentrell Fenton MD [address] [phone] 03/06/2026 10:00 AM CDT Office Visit [facility] On[facility] Services [address] [place] [address] Eugenio Thomason MD [address] [place] [address] Discharge Disposition: Discharged to home or Selfcare documented as of this encounter Visit Diagnoses Not on filedocumented in this encounter Additional Health Concerns Assessment Noted Time PHQ-9 Depression Total Score: 0 05/08/20 20 1:06 PM CDT documented as of this encounter Care Teams Dry Cleaning Supervisor Relationship Specialty Start Date End Date Erik Davis MD [address] [address] PCP - General Family Medicine 10/17/15 Kentrell Fenton MD [address] [phone] Consulting Physician Endocrinology 08/22/22 Shankar Álvarez MD [address] [place] [address] Consulting Physician Medical Oncology 10/28/22 Eugenio Thomason MD [address] [place] [address] Consulting Physician Radiation Oncology 10/28/22 Arnaldo Headley MD [address] [address] Consulting Physician Otolaryngology 10/31/22 Estefani Thorne APRN, EMERITA [address] [address] Nurse Practitioner Advanced Practice Nurse 05/27/22 Juanjose Woodson MD [address] [address] Consulting Physician Colon and Rectal Surgery 03/21/24 documented as of this encounter
--- OUTSIDE RECORDS SUMMARY | 2025-10-01 15:21 | XMS_ITS | Clinical Summary ---
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 Name Role Phone Erik Davis MD Primary Care Provider [phone] Kentrell Fenton MD Unavailable Shankar Álvarez MD Unavailable Eugenio Thomason MD Unavailable [phone] Arnaldo Headley MD Unavailable [phone] Estefani Thorne APRN, AUTOMATIC LATHE TENDER Unavailable Juanjose Woodson MD Unavailable Allergies Active Allergy Reactions Criticality Noted Date Comments Codeine Rash Acetaminophen-Codeine Unknown,Hives,Rash Medium 2015 Reaction: RASH, HIVES, Tramadol Nausea,Other (see Comments) Low 08/06/2017 vomitting Medications cetirizine (ZYRTEC) 10 MG Tablet Take 10 mg by mouth daily. Active Aspirin 81 MG Tablet Take 81 mg by mouth daily. Active Zarephath-3 Fatty Acids (FISH OIL PO) Take by mouth 2 times daily. Active CINNAMON PO Take by mouth 2 times daily. Active Calcium Carbonate Antacid (TUMS E-X 750 PO) Take by mouth daily. Active estradiol (ESTRACE) 1 MG Tablet TAKE 1 TABLET BY MOUTH EVERY DAY 90 Tablet 2 05/26/20 25 Active losartan (COZAAR) 25 MG Tablet TAKE 1 TABLET BY MOUTH TWICE A DAY 180 Tablet 2 06/02/20 25 Active Multiple Vitamin (MULTI-VITAMIN PO) Take by mouth. Activ e levothyroxine (SYNTHROID) 137 MCG Tablet Take 1 Tablet by mouth daily. 90 Tablet 1 08/02/20 Active Tirzepatide (Mounjaro) 10 MG/0.5ML Solution Auto-injector 10 mg by Subcutaneous route once a week. 12 mL 08/24/20 25 Active Additional Information Patient taking differently:10 mg Subcutaneous,(No frequency reported), EVERY OTHER WEEK, Reported on 09/07/2025 metoprolol Succinate (TOPROL-XL) 25 MG TABLET SR 24 HR TAKE 1 TABLET BY MOUTH EVERY DAY 90 Tablet 1 09/29/20 25 Active atorvastatin (LIPITOR) 10 MG Tablet TAKE 1 TABLET BY MOUTH EVERY OTHER DAY 45 Tablet 1 09/29/20 Active atorvastatin (LIPITOR) 10 MG Tablet TAKE 1 TABLET BY MOUTH EVERY OTHER DAY 45 Tablet 1 04/02/20 25 025 Discontinued metoprolol Succinate (TOPROL-XL) 25 MG TABLET SR 24 HR TAKE 1 TABLET BY MOUTH EVERY DAY 90 Tablet 1 04/02/20 25 025 Discontinued Active Problems Problem Noted Date Diagnosed Date Abnormal mammogram 05/30/2025 Primary thyroid papillary carcinoma 03/07/2025 Overweight (BMI 25.0-29.9) 08/09/2024 Hypothyroidism 08/09/2024 Iatrogenic hypothyroidism 05/31/2024 Hyperlipidemia 02/02/2024 Status post radioactive iodine thyroid ablation 11/26/2023 Overview (11/26/2023): She received 100 mCi of I -131 11/14/2022. Polycythemia 03/09/2023 Long-term current use of levothyroxine Overview (10/31/2022): Held beginning 10/30/2022. History of thyroid cancer 10/20/2022 Cancer Staging:Pathologic stage from 10/29/2022:Stage II(pT1b, pN1b, cM0, Age at diagnosis: >= 55 years) - Signed by Eugenio Thomason MD on 10/31/2022 Overview (06/02/2023): Pathologic stage II (pT1b, pN1b, cM0, Age at diagnosis: >=55 years) well-differentiated papillary thyroid carcinoma. On 10/13/2022 at [facility] she was taken to the OR for a right neck dissection levels II through IV and total thyroidectomy with central neck dissection on the right. TSH 11/11/2022 was 56.100. Thyroglobulin tumor marker 11/14/2022 was 0.2 and thyroglobulin antibody was <1.8. On 11/14/2022 she received 100 mCi of I-131. Whole-body I-131 scan 11/21/2022 revealed at least 2 foci of uptake within the neck likely representing residual thyroid tissue, benign or malignant. No suspicious distant areas of uptake. She was then placed on TSH suppressive therapy with levothyroxine. Interstitial lung disease 02/04/20[address] lung nodules on CT 01/22/2022 Bronchiolitis 01/22/2022 Claudication of both lower extremities 0 High blood pressure 05/08/2020 Chronic prescription benzodiazepine use 03/10/20 18 Obesity (BMI 30-39.9) 12/09/2017 Thoracolumbar back pain 08/06/2017 Current smoker 08/04/2016 Overview (03/07/2025): 1/2 pack/day as per March 2025. Greater than 60-[id number]-[id number] smoking history. Type 2 diabetes mellitus treated without insulin 03/05/2016 Resolved Problems Problem Noted Date Diagnosed Date Resolved Date History of toe fracture 04/26/202405/04 Hyperglycemia 02/02/2024 05/31/2024 Screening for lung cancer 08/03/2023 Seasonal allergies 08/03/2023 4 History of colon polyps 03/09/202311/03 Bilateral leg edema 03/09/2023 11/26/19 24 Postmenopausal 03/09/2023 05/31/2024 Seasonal allergies 12/08/2022 3 Metastasis to cervical lymph node 10/20/2022 05/31/2024 Muscle spasm 10/20/2022 06/02/2023 H/O total thyroidectomy with right radical neck dissection 10/20/2022 05/31/2024 Insomnia 08/28/2022 06/02/2023 Lymphadenopathy 08/28/2022 10/31/2022 Noncompliance 04/28/2022 06/02/2023 Personal history of tobacco use 01/22/2022 06/02/2023 Chronic foot pain 12/03/2020 06/02/2023 Right leg paresthesias 05/08/202006/02 Left leg paresthesias 05/08/20202022 Leg edema 05/08/2020 11/26/2023 Gastroesophageal reflux disease 05/08/2020 11/26/2023 Vocal cord polyp 05/08/2020 06/02/2023 Seasonal allergies 04/06/2019 2 Neck pain 07/07/2018 06/02/2023 Chronic joint pain 03/10/2018 3 Abnormal thyroid ultrasound 10/05/2017 06/02/2023 Thyroid nodule 09/17/2017 10/31/2022 Anxiety 11/11/2016 11/26/2023 Hyperlipidemia 08/04/2016 06/02/2023 Hypertension, essential 08/04/2016 08/11/2022 Non morbid obesity 03/05/2016 3 Screening for breast cancer 03/05/2016 10/31/2022 Dyslipidemia 03/05/2016 06/02/2023 Encounters Date Type Department Care Team Description 09/29/2025 Refill [facility] [place] [address] [place] [address] Erik Davis MD Medication Refill 09/21/2025 Results Follow-Up [facility] - Endocrinology - [place] [address] [place] [address] Kentrell Fenton MD THYROID STIMULATING HORMONE (TSH), THYROXINE (T4) FREE 09/18/2025 Travel 09/07/2025 11:00 AM UX ENGINEER [facility] [address] [place] [address] Eugenio Thomason MD Primary thyroid papillary carcinoma (Primary Dx); Metastasis to cervical lymph node; Status post radioactive iodine thyroid ablation; H/O total thyroidectomy with right radical neck dissection; Iatrogenic hypothyroidism; Long-term current use of levothyroxine; Current smoker; Multiple lung nodules on CT Discharge Disposition: Discharged to home or Selfcare 09/07/2025 Travel 09/02/2025 Travel 08/24/2025 [facility] [address] [place] [address] Kentrell Fenton MD Medication Refill 08/21/2025 7:36 AM CDT - 08/21/2025 11:59 PM CDT Hospital [facility] [address] [place] [address] Eugenio Thomason MD Discharge Disposition: Discharged to home or Selfcare 08/21/2025 Travel 08/02/2025 Results Follow-Up [facility] Endocrin[facility] [address] [place] [address] Kentrell Fenton MD THYROID STIMULATING HORMONE (TSH), THYROXINE (T4) FREE 07/31/2025 Travel from Last 3 Months Immunizations Immunization Administration Dates Next Due Covid-19, Mrna, Lnp-s, PF, 1 00 mcg/0.5 mL Dose (Moderna) 01/24/2021,12/30/2020 Influenza Vaccine greater than 3 yrs 11/02/2012 Influenza Vaccine, Quadrivalent, PF 10/0 12/2022,08/28/2022,08/06/2021,2019,10/06/2019,10/07/2018,09/17/2017 Influenza, Injectable, Quadrivalent 07/15/2016 Influenza, Seasonal, Injecta ble, Undefined 11/02/2012 Influenza,Split Virus,Trivalent,Injectable,PF 08/09/2024 Pneumococcal Vaccine Adult - 23 Valent 11/02/2008 TD VACCINE 11/02/2005 Family History Medical History Relation Name Comments Heart Attack Brother No Known Problems Daughter 1 No Known Problems Daughter 2 Thyroid Disease Daughter 3 Cancer Father Armin Heart Attack Father Armin Heart Disease Father Armin Hypertension Father Armin Leukemia/Lymphoma Father Armin NHL Diabetes Maternal Grandfather Semaj Heart Disease Maternal Grandmother Cancer Mother Nathalie Hypertension Mother Nathalie Leukemia/Lymphoma Mother Nathalie CML treate d with Glevac. Did not pass from CML. Stroke Mother Nathalie Passed from CVA . Breast Cancer Paternal Aunt Rheumatoid Arthritis Sister Relation Name Status Comments Brother Daughter 1 Alive Daughter 2 Alive Daughter 3 Alive Father Armin Maternal Grandfather Semaj Maternal Grandmother Mother Nathalie Paternal Aunt Sister Alive Social History Tobacco Use Types Packs/Day Years Used Date Smoking Tobacco: Every Day Cigarettes 1.3 47.4 Started: 1978 Smokeless Tobacco: Never Tobacco Cessation:Ready to Q uit: Not Asked; Counseling Given: Not Answered Comments:Cutting down in 2021 and down 0.5 ppd as of 10/29/2022. Alcohol Use Standard Drinks/Week Comments Yes 0 (1 standard drink = 0.6 oz pur e alcohol) Social, don't drink weekly [employer] Util[employer] Answer Date Recorded In the past 12 months has [employer], gas, oil, or water [employer] threatened to shut off services in your home? Patient declined 01/29/2025 Social Connection and Isolation Panel Answer Date Recorded In a typical week, how many times do you talk on the phone with family, friends, or neighbors? Patient declined 01/29/2025 How often do you get togethe r with friends or relatives? Patient declined 01/29/2025 How often do you attend roman catholic or jainism serv ices? Patient declined 01/29/2025 Do you belong to any clubs o r organizations such as roman catholic groups, unions, fraternal or athletic groups, or school groups? Patient declined 01/29/2025 How often do you attend meet ings of the clubs or organizations you belong to? Patient declined 01/29/2025 Are you , , di vorced, , never , or living with a partner? 01/29/2025 AUDIT-C Answer Date Recorded Q1: How often do you have a drink containing alc ohol? Monthly or less 01/29/2025 Q2: How many drinks containi ng alcohol do you have on a typical day when you are drinking? 1 or 2 01/29/2025 Q3: How often do you have si x or more drinks on one occasion? Less than monthly 01/29/2025 Overall Financial Resource Strain (CARDIA) Answe r Date Recorded How hard is it for you to pa y for the very basics like food, housing, medical care, and heating? Patient declined 01/29/2025 PHQ-2 Answer Date Recorded Total Score - Questions 1-9 0 04/0 11/2024 [facility] - Occupational Stress Questionnaire Answer Date Recorded Do you feel stress - tense, restless, nervous, or anxious, or unable to sleep at night because your mind is troubled all the time - these days? Patient declined 01/29/2025 Exercise Vital Sign Answer Date Recorde d On average, how many days pe r week do you engage in moderate to strenuous exercise (like a brisk walk)? 7 days 01/29/2025 On average, how many minutes do you engage in exercise at this level? 60 min 01/29/2025 Hunger Vital Sign Answer Date Recorded Within the past 12 months, y ou worried that your food would run out before you got the money to buy more. Patient declined Within the past 12 months, t he food you bought just didn't last and you didn't have money to get more. Patient declined PRAPARE - Transportation Answer Date Re corded In the past 12 months, has l ack of transportation kept you from medical appointments or from getting medications? Patient declined 01/29/2025 In the past 12 months, has l ack of transportation kept you from meetings, work, or from getting things needed for daily living? Patient declined 01/29/2025 Housing Stability Vital Sign Answer Arun e Recorded In the last 12 months, was t here a time when you were not able to pay the mortgage or rent on time? Patient declined 01/30/20 25 Number of Times Moved in the Last Year Not on fi le 01/29/2025 At any time in the past 12 m [facility], were you homeless or living in a longterm (including now)? Patient declined 01/29/2025 Education Answer Date Recorded What is the highest level of school you have completed or the highest degree you have received? Associate degree: occupational, technical, or vocational program 03/02/2023 Sexually Active Control Partners Comments Yes Post-menopausal, None Male Same p artner for over 30 yrs. Comments No Sex and Gender Information Value Date Recorded Sex Assigned at Not on file Legal Sex Female 12:41 AM CDT Gender Identity Not on file Sexual Orientation Not on file Last Filed Vital Signs Vital Sign Reading Time Taken Comments Blood Pressure 130/80 09/07/2025 11:00 AM UX ENGINEER Pulse 77 09/07/2025 11:00 AM UX ENGINEER Temperature 36.8 C (98.3 F) 09/07/2025 11:00 AM UX ENGINEER Respiratory Rate 16 09/07/2025 11:00 AM UX ENGINEER Oxygen Saturation 98% 09/07/2025 11:00 AM UX ENGINEER Inhaled Oxygen Concentration - - Weight 61.7 kg (136 lb) 09/07/2025 11:00 AM UX ENGINEER Height 167.6 cm (5' 6) 09/07/2025 11:00 AM UX ENGINEER Body Mass Index 21.95 09/07/2025 11:00 AM UX ENGINEER Plan of Treatment Upcoming Encounters Date Type Department Care Team (Late st Contact Info) Description 11/14/2025 1:45 PM UX ENGINEER [facility] - [facility] Medicine [facility] [address] [place] [address] Erik Davis MD [address]2 [facility] [address] [place] [address] 12/11/2025 8:15 AM UX ENGINEER [facility] [place] [address] [place] [address] Kentrell Fenton MD [address] [facility] [address] [place] [address] 03/06/2026 10:00 AM CDT [facility] [address] [place] [address] uEgenio Thomason MD [address] [place] [address] Discharge Disposition: Discharged to home or Selfcare Health Maintenance Due Date Last Done Comments Diabetes: Eye Exam 1960 TdaP Immunization 1960 Zoster Immunization (1 of 2) 1979 Cologuard 2005 Immunochemical Fecal Occult Blood 2005 Pneumococcal Immunization (50+ years) (2 of 2 - PCV) 11/02/2009 11/02/2008 Respiratory Syncytial Virus (RSV) Immunization (Adult) (1 - Risk 50-74 years 1-dose series) 2010 Lung Cancer Screening 03/03/2023 03/03/2022, 021 DEXA Bone Density 05/18/2025 05/18/2023 Influenza Immunization (#1) 2025 100 06/2024, 08/03/2023, 08/28/2022, Additional history exists SARS-COV-2 Immunization ( season) 2025 08/25/2022, 08/27/2021, 01/24/2021, Additional history exists Welcome to Medicare (IPPE) G0402 09/02/2025 Diabetes: Hemoglobin A1c 12/06/2025 025, 02/22/2025, 08/01/2024, Additional history exists Diabetes: Foot Exam 03/21/2026 03/21/2025 Diabetes: Nephropathy Screening 05/27/2026 05/27/2025, 02/22/2025, 08/01/2024, Additional history exists Mammogram 05/29/2026 05/29/2025, 05/02, 11/07/2019, Additional history exists Colonoscopy 06/06/2029 06/06/2024, 03/2024, 06/06/2024, Additional history exists Colorectal Cancer Screening 06/06/2029 Pneumococcal Immunization Combined Discontinued 11/02/2008 Hepatitis C Virus (HCV) Screening Completed 10/08/2017 Hepatitis B Immunization Aged Out No longer eligible based on patient's age to complete this topic Human Papillomavirus (HPV) Immunization Aged Out No longer eligible based on patient's age to complete this topic Meningococcal Immunization (ACWY) Aged Out No longer eligible based on patient's age to complete this topic Rotavirus Immunization Aged Out No lo nger eligible based on patient's age to complete this topic Goals Goal Patient Goal Type Associated Problems Recent Progress Patient-Stated? Author Help patient manage hypertension Care Plan MCCP HYPERTENSION CONCERN (PATIENT NOT ON HIGH BLOOD PRESSURE MEDICATIONS) No Erik Davis MD Help patients manage type 2 diabetes Care Plan MCCP TYPE 2 DIABETES CONCERN No Erik Davis MD Help patient manage blood glucose Care Plan MCCP TYPE 2 DIABETES METFORMIN PATTERN CONCERN No Erik Davis MD Procedures Procedure Name Priority Date/Time Associated Diagnosis Comments THYROXINE (T4) FREE Routine 09/18/2025 8 :36 AM UX ENGINEER Postoperative hypothyroidism Medication dose changed THYROID STIMULATING HORMONE (TSH) Routine 09/18/2025 8:36 AM UX ENGINEER Postoperative hypothyroidism Medication dose changed THYROID STIMULATING HORMONE (TSH) Routine 09/02/2025 9:01 AM CDT Iatrogenic hypothyroidism Long-term current use of levothyroxine THYROGLOBULIN,TUMOR MRK,S,ZEBULON HTG2 Routine 09/02/2025 9:01 AM CDT 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 H/O total thyroidectomy with right radical neck dissection Status post radioactive iodine thyroid ablation US THYROID Routine 08/21/2025 8:17 AM CDT Primary thyroid papillary carcinoma THYROXINE (T4) FREE Routine 07/31/2025 7 :45 AM CDT Postoperative hypothyroidism THYROID STIMULATING HORMONE (TSH) Routine 07/31/2025 7:45 AM CDT Postoperative hypothyroidism POCT GLYCOSYLATED HEMOGLOBIN Routine 06/05/2025 8:50 AM CDT Type 2 diabetes mellitus without complication, without long-term current use of insulin ABUNDIO SCREENING BILATERAL DIGITAL W CAD W DORA Routine 05/29/2025 8:25 AM CDT Encounter for screening mammogram for breast cancer CMP (COMPREHENSIVE METABOLIC PANEL) Routine 05/27/2025 8:05 AM CDT Postoperative hypothyroidism Type 2 diabetes mellitus without complication, without long-term current use of insulin GI IMAGING - COLONOSCOPY Routine 06/06/2024 8:27 AM CDT ABUNDIO BONE DENSITOMETRY AXIAL SKELETON Routine 05/18/2023 1:[address] HIGH RESOLUTION CHEST COMPLETE Routine 03/03/2022 10:34 AM CDT Interstitial lung disease (HCC) HEPATITIS C ANTIBODY Routine 10/08/2017 9:29 AM UX ENGINEER Encounter for hepatitis C screening test for low risk patient from Last 3 Months or Most Recently Relevant to Health Maintenance Results * THYROXINE (T4) FREE (09/18/2025 8:36 AM UX ENGINEER) Only the most recent of2 resultswithin the time period is included. T4 FREE 1.4 0.7 - 1.9 ng/dL 09/18/2025 11:05 AM UX ENGINEER [facility] Blood Venipuncture / Unknown 09/18/2025 8:36 AM UX ENGINEER 09/18/2025 10:23 AM UX ENGINEER us Kentrell Fenton MD CHEMISTRY ORDERABLES Final Resul t [facility] #[address] [place] [address] * THYROID STIMULATING HORMONE (TSH) (09/18/2025 8:36 AM UX ENGINEER) Only the most recent of3 resultswithin the time period is included. TSH 1.364 0.300 - 5.000 mIU/L 09/18/2025 11:05 AM UX ENGINEER [facility] Blood Venipuncture / Unknown 09/18/2025 8:36 AM UX ENGINEER 09/18/2025 10:23 AM UX ENGINEER us Kentrell Fenton MD CHEMISTRY ORDERABLES Final Resul t [facility] [address] [place] [address] * THYROGLOBULIN,TUMOR MRK,S,FORRESTER HTG2 (09/02/2025 9:01 AM CDT) THYROGLOBULIN ANTIBODY, S <1.8 <1.8 IU/mL 09/06/2025 6:16 PM [facility] THYROGLOBULIN, TUMOR MARKER, S <0.1 < or = 33 ng/mL 09/06/2025 6:16 PM [facility] THYROGLOBULIN INTERPRETATION SEE NOTE 09/06/2025 6:16 PM [facility] Comment: Thyroglobulin (Tg) reference intervals are for patients with an intact thyroid and not for patients who have had surgery for thyroid cancer. Tg reference intervals in patients that have undergone thyroidectomy or any treatment for follicular thyroid cancer are dependent on the residual mass of the thyroid tissue after surgery. Tg results, regardless of concentration, should not be interpreted as absolute evidence for the presence or absence of papillary or follicular thyroid cancer. This result needs to be interpreted in the context of the clinical evaluation. ADDITIONAL INFORMATION PLEASE NOTE: The given cutoff of <1.8 IU/mL is for the detection of potential thyroglobulin antibody (TgAb) interference in thyroglobulin immunoassays. A thyroglobulin antibody (TgAb) reference cutoff of <4.0 IU/mL may be more suitable for the evaluation of autoimmune thyroiditis. The thyroglobulin and thyroglobulin antibody testing methods are immunoenzymatic assays manufactured by [employer] and performed on the [employer] DXI 800. Values obtained from different assay methods or kits may be different and cannot be used interchangeably. The results cannot be interpreted as absolute evidence for the presence or absence of malignant disease. Test Performed by: [facility] [address] [place] [address] Senior Interactive Producer: Anastasiia Kennedy Ph.D.; CLIA# [id number] Blood Venipuncture / Unknown 09/02/2025 9:01 AM CDT 09/02/2025 9:57 AM CDT Eugenio Thomason MD LAB SEND OUTS Final R esult [facility] US * US THYROID (08/21/2025 8:17 AM CDT) Anatomical Region Laterality Modality BODY N/A Ultrasound 08/21/2025 7:36 AM CDT Impressions 08/21/2025 7:55 PM CDT IMPRESSION: * Status post thyroidectomy. No residual disease at the surgical bed. * Elongated right neck lymph node measuring 1.8 cm long axis with a fatty hilum is most likely reactive. Attention on follow-up. Narrative 08/21/2025 7:55 PM CDT US THYROID EXAM DATE: 08/21/2025 7:49 AM HISTORY: 64 years year old Female. Malignant neoplasm of thyroid gland TECHNIQUE: Ultrasound images of the thyroid. COMPARISON: Comparison made with previous examination(s) dated ([place]) 17-May-2024,([place]) 25-May-2023. FINDINGS: The thyroid gland is surgically absent. No residual disease is noted at the surgical bed. An elongated right neck lymph node measuring 1.8 x 0.6 x 1.1 cm demonstrates a fatty hilum is most likely a reactive lymph node. This was not present on the prior exam, attention on follow-up. Procedure Note Jorge Phillips MD - 08/21/2025 US THYROID EXAM DATE: 08/21/2025 7:49 AM HISTORY: 64 years year old Female. Malignant neoplasm of thyroid gland TECHNIQUE: Ultrasound images of the thyroid. COMPARISON: Comparison made with previous examination(s) dated ([place])17-May-2024,([place]) 25-May-2023. FINDINGS: The thyroid gland is surgically absent. No residual disease is noted atthe surgical bed. An elongated right neck lymph node measuring 1.8 x 0.6 x1.1 cm demonstrates a fatty hilum is most likely a reactive lymph node.This was not present on the prior exam, attention on follow-up. IMPRESSION: * Status post thyroidectomy. No residual disease at the surgical bed. * Elongated right neck lymph node measuring 1.8 cm long axis with a fattyhilum is most likely reactive. Attention on follow-up. Eugenio Thomason MD [facility] US ORDERABLES Final Result * POCT GLYCOSYLATED HEMOGLOBIN (06/05/2025 8:50 AM CDT) HGB-A1C 5.4 4 - 6 % Blood 06/05/2025 8:5 0 AM CDT us Kentrell Fenton MD POINT OF CARE TESTING (MANUAL) F inal Result * ABUNDIO SCREENING BILATERAL DIGITAL W CAD W DORA (05/29/2025 8:25 AM CDT) Anatomical Region Laterality Modality breast Bilateral Mammography 05/29/2025 7:51 AM CDT Narrative 05/30/2025 9:51 AM CDT - ABUNDIO SCREENING BILATERAL DIGITAL W CAD W DORA BILATERAL DIGITAL SCREENING MAMMOGRAM 3D/2D WITH CAD WITH MEDIOLATERAL OBLIQUE CRANIOCAUDAL: 05/29/2025 The study was acquired using digital technology and interpreted from soft copy. Current study was also evaluated with ICAD version 7.2. 2D digital mammographic views, as well as 3D digital tomosynthesis were performed in the CC and MLO projections. CLINICAL: Routine screening. Patient has no complaints. She reports an 80 pound weight loss since her last mammogram in 2022. Personal history of thyroid cancer. Paternal aunt had breast cancer. COMPARISONS: Comparison is made to exams dated: 05/18/2023, 11/07/2019, and 07/28/2018 [facility]. BREAST TISSUE:There are scattered areas of fibroglandular density. FINDINGS: There is a focal asymmetry in the left breast at 12 o'clock posterior depth. No other significant masses, calcifications, or other findings are seen in either breast. IMPRESSION: INCOMPLETE: NEED ADDITIONAL IMAGING EVALUATION The focal asymmetry in the left breast is indeterminate. An immediate follow-up is recommended. A letter will be sent to the patient with these results. Electronically signed by: Martha calvo/penrad:05/29/2025 20:27:16 Hospital Insurance Clerk(s): RT Arlen(R)(M), [facility] letter sent: Additional Imaging Reading location: DIGGS Mammogram BI-RADS: Category 0: Incomplete: Need Additional Imaging Evaluation Procedure Note Martha Aguilar MD - 05/30/2025 - ABUNDIO SCREENING BILATERAL DIGITAL W CAD W DORA BILATERAL DIGITAL SCREENING MAMMOGRAM 3D/2D WITH CAD WITH MEDIOLATERAL OBLIQUE CRANIOCAUDAL: 05/29/2025 The study was acquired using digital technology and interpreted from soft copy. Current study was also evaluated with ICAD version 7.2. 2D digital mammographic views, as well as 3D digital tomosynthesis were performed in the CC and MLO projections. CLINICAL: Routine screening. Patient has no complaints. She reports an 80 pound weight loss since her last mammogram in 2022. Personal history of thyroid cancer. Paternal aunt had breast cancer. COMPARISONS: Comparison is made to exams dated: 05/18/2023, 11/07/2019, and 07/28/2018 [facility]. BREAST TISSUE:There are scattered areas of fibroglandular density. FINDINGS: There is a focal asymmetry in the left breast at 12 o'clock posterior depth. No other significant masses, calcifications, or other findings are seen in either breast. IMPRESSION: INCOMPLETE: NEED ADDITIONAL IMAGING EVALUATION The focal asymmetry in the left breast is indeterminate. An immediate follow-up is recommended. A letter will be sent to the patient with these results. Electronically signed by: Martha calvo/penrad:05/29/2025 20:27:16 Hospital Insurance Clerk(s): RT Arlen(R)(M), [facility] letter sent: Additional Imaging Reading location: DIGGS Mammogram BI-RADS: Category 0: Incomplete: Need Additional Imaging Evaluation us Erik Davis MD IMG MAMMO ORDERABLES Alysa l Result * (ABNORMAL) CMP (COMPREHENSIVE METABOLIC PANEL) (05/27/2025 8:05 AM CDT) SODIUM 139 136 - 145 mmol/L 05/27/2025 10:44 AM CDT [facility] POTASSIUM 4.5 3.5 - 5.1 mmol/L 05/27/2025 10:44 AM CDT [facility] CHLORIDE 105 98 - 107 mmol/L 05/27/2025 10:44 AM CDT [facility] CO2, VENOUS 25 22 - 30 mmol/L 05/27/2025 10:44 AM CDT [facility] ANION GAP 13.5 <18.0 mmol/L 05/27/2025 10:44 AM CDT [facility] GLUCOSE 92 70 - 99 mg/dL 05/27/2025 10:44 AM CDT [facility] BUN 17 10 - 20 mg/dL 05/27/2025 10:44 AM CDT [facility] CREATININE, BLOOD 0.64 0.60 - 1.00 mg/dL 05/27/2025 10:44 AM CDT [facility] BUN/CREATININE RATIO 27(H) 12 - 20 ratio 05/27/2025 10:44 AM CDT [facility] TOTAL PROTEIN 7.3 6.0 - 8.0 g/dL 05/27/2025 10:44 AM CDT [facility] ALBUMIN 4.2 3.5 - 5.0 g/dL 05/27/2025 10:44 AM CDT [facility] A/G RATIO 1.4 1.0 - 2.2 05/27/2025 10:44 AM CDT [facility] CALCIUM 9.4 8.7 - 10.5 mg/dL 05/27/2025 10:44 AM CDT [facility] T BILI 0.4 0.2 - 1.2 mg/dL 05/27/2025 10:44 AM CDT [facility] SGOT (AST) 22 <43 U/L 05/27/2025 10:44 AM CDT [facility] SGPT (ALT) 17 <56 U/L 05/27/2025 10:44 AM CDT [facility] ALKALINE PHOSPHATASE 56 40 - 150 U/L 05/27/2025 10:44 AM CDT [facility] IS THE PATIENT REQUIRED TO BE FASTING? No 05/27/2025 10:44 AM CDT [facility] GFR, ESTIMATED >60 >=60 05/27/2025 10:44 AM CDT [facility] Comment: Creatinine Clearance is the preferred criteria for selecting drug dose adjustments in renally impaired patients. The GFR is provided as additional pertinent clinical information. GFR is reported in mL/min/1.73 sq m. Calculation based on the Chronic Kidney Disease Epidemiology Collaboration (CKD- EPI) equation refit without adjustment for race. GFR, EST. >60 >=60 025 10:44 AM CDT [facility] GFR, EST. NONAFRICAN >60 >=60 05/27/2025 10:44 AM CDT [facility] Blood Venipuncture / Unknown 05/27/2025 8:05 AM CDT 05/27/2025 9:25 AM CDT us Kentrell Fenton MD CHEMISTRY ORDERABLES Final Resul t [facility] [address] [place] [address] * GI IMAGING - COLONOSCOPY (06/06/2024 8:27 AM CDT) us Juanjose Woodson MD IMG DIAGNOSTIC ORDERABLES Final Result * ABUNDIO BONE DENSITOMETRY AXIAL SKELETON (05/18/2023 1:00 PM CDT) Anatomical Region Laterality Modality BODY N/A Computed Radiogr aphy 05/18/2023 2:06 PM CDT Impressions 05/18/2023 2:09 PM CDT IMPRESSION: Normal bone mass. REFERENCE: Bone mineral density: Normal (T-score above or = -1.0) Low bone mass (T-score between -1.0 and -2.5) replaces the previously used term osteopenia Osteoporosis (T-score = or below -2.5) Medical evaluation for secondary causes of low bone mineral density may be appropriate. FRAX is a World Health Organization validated fracture risk assessment tool that calculates a person's 10 year probability of a major osteoporosis related fracture and hip fracture. According to the National Osteoporosis Foundation guidelines, postmenopausal women and men age 50 or older with low bone mass and a 10 year probability of a major osteoporosis related fracture = or greater than 20% or a 10 year probability of a hip fracture = or greater than 3% should be considered for treatment. For further information, including treatment recommendations, please refer to the 2019 ISCD Official Positions (http://www.iscd.org) and the NOF's Clinician's Guide to Prevention and Treatment of Osteoporosis (http://www.nof.org/professionals/clinical-guidelines) Narrative 05/18/2023 2:09 PM CDT EXAM DESCRIPTION: ABUNDIO BONE DENSITOMETRY AXIAL SKELETON REASON FOR STUDY: 62 y/o year old F with given history of: post menopause [employer]ner/Model: [employer] (S/N [id number]) CLINICAL INFORMATION: Current height: 66 inches Maximum height: 66 inches Weight: 221 pounds Risk factors: Current smoker. History of adult fracture. Menopausal. COMPARISON: None available FINDINGS: AP LUMBAR SPINE L1-L4: Total BMD is 1.330 g/cm2 T-score is 1.1 LEFT HIP: Total BMD is 1.161 g/cm2 T-score is 1.2 Femoral neck BMD is 1.085 g/cm2 T-score is 0.3 FRAX: 10 year risk for a major osteoporotic fracture is 9.4 %, 10 year risk for a hip fracture is 0.3 % THIS IS AN ELECTRONICALLY VERIFIED FINAL REPORT 05/18/2023 2:06 PM - Electronically signed by Andrea Ashraf M.D. KR: KR Report ID: [id number] Reading Location: [place] [address] Procedure Note Andrea Ashraf MD - 05/18/2023 EXAM DESCRIPTION: ABUNDIO BONE DENSITOMETRY AXIAL SKELETON REASON FOR STUDY: 62 y/o year old F with given history of: post menopause [employer]ner/Model: [employer] (S/N [id number]) CLINICAL INFORMATION: Current height: 66 inches Maximum height: 66 inches Weight: 221 pounds Risk factors: Current smoker. History of adult fracture. Menopausal. COMPARISON: None available FINDINGS: AP LUMBAR SPINE L1-L4: Total BMD is 1.330 g/cm2 T-score is 1.1 LEFT HIP: Total BMD is 1.161 g/cm2 T-score is 1.2 Femoral neck BMD is 1.085 g/cm2 T-score is 0.3 FRAX: 10 year risk for a major osteoporotic fracture is 9.4 %, 10 year risk for a hip fracture is 0.3 % THIS IS AN ELECTRONICALLY VERIFIED FINAL REPORT 05/18/2023 2:06 PM - Electronically signed by Andrea Ashraf M.D. KR: KR Report ID: [id number] Reading Location: [place] [address] IMPRESSION: Normal bone mass. REFERENCE: Bone mineral density: Normal (T-score above or = -1.0) Low bone mass (T-score between -1.0 and -2.5) replaces the previously used term osteopenia Osteoporosis (T-score = or below -2.5) Medical evaluation for secondary causes of low bone mineral density may be appropriate. FRAX is a World Health Organization validated fracture risk assessment tool that calculates a person's 10 year probability of a major osteoporosis related fracture and hip fracture. According to the National Osteoporosis Foundation guidelines, postmenopausal women and men age 50 or older with low bone mass and a 10 year probability of a major osteoporosis related fracture = or greater than 20% or a 10 year probability of a hip fracture = or greater than 3% should be considered for treatment. For further information, including treatment recommendations, please refer to the 2019 ISCD Official Positions (http://www.iscd.org) and the NOF's Clinician's Guide to Prevention and Treatment of Osteoporosis (http://www.nof.org/professionals/clinical-guidelines) Erik jA Davis MD IMG DEXA ORDERABLES Final Result * CT HIGH RESOLUTION CHEST COMPLETE (03/03/2022 10:34 AM CDT) Anatomical Region Laterality Modality Chest N/A Computed Tomogra phy 03/05/2022 11:5 6 AM CDT Impressions 03/05/2022 11:59 AM CDT IMPRESSION: 1. Mild emphysema. No significant concomitant fibrosis is seen. 2. Subtle centrilobular ground-glass opacities in the upper lobes are slightly less conspicuous, technical differences versus mild improvement in respiratory bronchiolitis interstitial lung disease. 3. Multiple small pulmonary nodules are unchanged. 4. Enlarged and multinodular thyroid gland is better assessed on prior sonographic evaluation. Narrative 03/05/2022 11:59 AM CDT EXAM DESCRIPTION: CT HIGH RESOLUTION CHEST COMPLETE REASON FOR STUDY: Interstitial pulmonary disease, unspecified TECHNIQUE: CT scan of the chest performed without intravenous contrast using helical scanning technique. Inspiratory and expiratory images were acquired. Prone inspiratory images were acquired. Reconstructed coronal and sagittal MPR images reviewed. All images stored on PACS. Automated exposure control was used as a dose optimization technique for this examination. COMPARISON: Chest CT 09/16/2021, thyroid ultrasound examinations including 11/04/2021 FINDINGS: LUNGS: No focal consolidation. Mild emphysema at the apices. Mild dependent ground-glass and reticular opacities on conventional CT images clear on prone images, compatible with mild dependent atelectasis. No significant fibrotic changes are evident. No significant air trapping with inspiratory and expiratory evaluation. There are multiple pulmonary nodules, which are unchanged since September 2021. Examples include a 6 mm right lower lobe nodule (series 4, image 74), a 4 mm medial lingular nodule (61), and a 5 mm left base nodule (76). Multiple additional smaller solid pulmonary nodules are also unchanged. A ground-glass halo surrounding a central tiny solid component in the right upper lobe (43) appears unchanged; the central solid component appears calcified. No new or growing pulmonary nodule. Subtle centrilobular ground-glass opacities in the upper lobes are less conspicuous than on the prior exam, which may be technical or due to mild improvement. PLEURA: No effusion. No pneumothorax. MEDIASTINUM/FRANKY: Enlarged left thyroid. Scattered calcifications in the thyroid. No enlarged mediastinal or hilar lymph nodes. HEART: Normal heart size. Three-vessel coronary artery calcifications. No pericardial effusion. VASCULATURE: Nonaneurysmal thoracic aorta with conventional 3 vessel arch branching pattern and [id number] atherosclerotic calcifications. AXILLA: No adenopathy. CHEST WALL: No masses. No subcutaneous air. HARDWARE/LINES/TUBES: None. UPPER ABDOMEN: 1 cm nodule of the inferomedial left adrenal gland appears unchanged. MUSCULOSKELETAL: Incompletely visualized anterior cervical fusion hardware. No acute fracture. No suspicious lytic or sclerotic bone lesion. OTHER: No other significant finding. THIS IS AN ELECTRONICALLY VERIFIED FINAL REPORT 03/05/2022 11:56 AM - Electronically signed by Reynold Adam M.D. BC: KUNAL Report ID: [id number] Reading Location: [id number] Procedure Note Reynold Adam MD - 03/05/2022 EXAM DESCRIPTION: CT HIGH RESOLUTION CHEST COMPLETE REASON FOR STUDY: Interstitial pulmonary disease, unspecified TECHNIQUE: CT scan of the chest performed without intravenous contrast using helical scanning technique. Inspiratory and expiratory images were acquired. Prone inspiratory images were acquired. Reconstructed coronal and sagittal MPR images reviewed. All images stored on PACS. Automated exposure control was used as a dose optimization technique for this examination. COMPARISON: Chest CT 09/16/2021, thyroid ultrasound examinations including 11/04/2021 FINDINGS: LUNGS: No focal consolidation. Mild emphysema at the apices. Mild dependent ground-glass and reticular opacities on conventional CT images clear on prone images, compatible with mild dependent atelectasis. No significant fibrotic changes are evident. No significant air trapping with inspiratory and expiratory evaluation. There are multiple pulmonary nodules, which are unchanged since September 2021. Examples include a 6 mm right lower lobe nodule (series 4, image 74), a 4 mm medial lingular nodule (61), and a 5 mm left base nodule (76). Multiple additional smaller solid pulmonary nodules are also unchanged. A ground-glass halo surrounding a central tiny solid component in the right upper lobe (43) appears unchanged; the central solid component appears calcified. No new or growing pulmonary nodule. Subtle centrilobular ground-glass opacities in the upper lobes are less conspicuous than on the prior exam, which may be technical or due to mild improvement. PLEURA: No effusion. No pneumothorax. MEDIASTINUM/FRANKY: Enlarged left thyroid. Scattered calcifications in the thyroid. No enlarged mediastinal or hilar lymph nodes. HEART: Normal heart size. Three-vessel coronary artery calcifications. No pericardial effusion. VASCULATURE: Nonaneurysmal thoracic aorta with conventional 3 vessel arch branching pattern and [id number]-[id number] atherosclerotic calcifications. AXILLA: No adenopathy. CHEST WALL: No masses. No subcutaneous air. HARDWARE/LINES/TUBES: None. UPPER ABDOMEN: 1 cm nodule of the inferomedial left adrenal gland appears unchanged. MUSCULOSKELETAL: Incompletely visualized anterior cervical fusion hardware. No acute fracture. No suspicious lytic or sclerotic bone lesion. OTHER: No other significant finding. THIS IS AN ELECTRONICALLY VERIFIED FINAL REPORT 03/05/2022 11:56 AM - Electronically signed by Reynold Adam M.D. BC: KUNAL Report ID: [id number] Reading Location: [place] [address] IMPRESSION: 1. Mild emphysema. No significant concomitant fibrosis is seen. 2. Subtle centrilobular ground-glass opacities in the upper lobes are slightly less conspicuous, technical differences versus mild improvement in respiratory bronchiolitis interstitial lung disease. 3. Multiple small pulmonary nodules are unchanged. 4. Enlarged and multinodular thyroid gland is better assessed on prior sonographic evaluation. us Estefani Thorne APRN, AUTOMATIC LATHE TENDER IMG CT ORDERABLES Fin al Result * HEPATITIS C ANTIBODY (10/08/2017 9:29 AM UX ENGINEER) hepatitis C antibody 0.18 <1 S/CO 10/08/2017 11:36 PM UX ENGINEER [facility] Comment: Signal/Cutoff ratio < 0.79 is Nondetected Signal/Cutoff ratio 0.80-0.99 is Grayzone Signal/Cutoff ratio > 0.99 is Detected Supplemental assays are recommended if signal/cutoff ratio is >/=1.00. Signal/cutoff ratio result >/= 5.00 is 97% predictive of positivity for recombinant immunoblot assay (RIBA) and will be reported to the [place] Department of Public [facility] as required. Blood specimen (specimen) Venipuncture / Unknown 10/08/2017 9:29 AM UX ENGINEER 10/08/2017 12:03 PM UX ENGINEER us Erik Davis MD CHEMISTRY ORDERABLES Alysa jalloh Result [facility] [address] [place] [address], [place] from Last 3 Months or Most Recently Relevant to Health Maintenance Additional Health Concerns Active Problems Noted Date Diagnosed Date [facility]P HYPERTENSION CONCERN (P ATIENT NOT ON HIGH BLOOD PRESSURE MEDICATIONS) 04/26/2024 [facility] TYPE 2 DIABETES CONCERN 04/26/2024 [facility] TYPE 2 DIABETES METFORMIN PATTERN CONCERN 0 04/26/2024 Insurance MEDICARE C [employer] Member Subscriber Plan / Payer (Ef fective 2017-Present) Name:Angel Casarez Member ID:[id number] Relation to Subscriber:Self Name:Angel Casarez Subscriber ID:[id number] Payer ID:PAPER Group ID:NONE Type:Not on file Address: [address] [place] [address] Care Teams 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 Relationship Specialty Start Date End Date Erik Davis MD [address] [facility] [address] [place] [address] PCP - General Family Medicine 10/17/15 Kentrell Fenton MD [address] [facility] [address] [place] [address] Consulting Physician Endocrinology 08/22/22 Shankar Álvarez MD [address] [place] [address] Consulting Physician Medical Oncology 10/28/22 Eugenio Thomason MD [address] [place] [address] Consulting Physician Radiation Oncology 10/28/22 Arnaldo Headley MD [address] [address] Consulting Physician Otolaryngology 10/31/22 Estefani Thorne APRN, AUTOMATIC LATHE TENDER #[address] [facility] [address] [place] [address] Nurse Practitioner Advanced Practice Nurse 05/27/22 Juanjose Woodson MD #[address] [facility] [address] [place] [address] Consulting Physician Colon and Rectal Surgery 03/21/24
--- OUTSIDE RECORDS SUMMARY | 2025-10-01 15:21 | XMS_ITS | Encounter Summary ---
Author Organization [facility] Address [address] [place] [address] Phone Care Team Providers Care Production Pattern Maker Name Role Phone Erik Davis MD Primary Care Provider [phone] Kentrell Fenton MD Unavailable Shankar Álvarez MD Unavailable [phone] Eugenio Thomason MD Unavailable Arnaldo Headley MD Unavailable Estefani Thorne APRN, [facility] Unavailable Juanjose Woodosn MD Unavailable Reason for Referral * Consult, Test & Initiate Treatment (Routine) - Closed Specialty Diagnoses / Procedures Referred By Debbie armstrong Referred To Contact Diagnoses Hormone replacement therapy (HRT) Erik Davis MD [address] [place] [address] Phone: tel: fax: [facility] [employer] [facility] [address] [place] [address] Phone: tel: fax: Referral ID Status Reason Start Date Expiration Date Visits Re quested Visits Authorized [id number] Closed 12/22/2022 1 1 Scheduling Instructions Jessa is being referred to [facility] or other specialist in patient's insurance network for hormone replacement theory. See below for Jessa's current medications, allergies and problem list. CURRENT MEDS: Current Outpatient Medications: albuterol 108 (90 Base) MCG/ACT Aerosol Solution, take 2 Puffs by inhalation every 4 hours as needed for Wheezing (SOB/chest tightness). (Patient not taking: No sig reported), Disp: 18 g, Rfl: 3 amLODIPine (NORVASC) 5 MG Tablet, TAKE 1 TABLET BY MOUTH EVERY DAY, Disp: 90 Tablet, Rfl: 1 Aspirin 81 MG Tablet, Take 81 mg by mouth daily. (Patient not taking: No sig reported), Disp: , Rfl: atorvastatin (LIPITOR) 10 MG Tablet, TAKE 1 TABLET BY MOUTH EVERY OTHER DAY, Disp: 45 Tablet, Rfl: 1 cetirizine (ZYRTEC) 10 MG Tablet, Take 10 mg by mouth daily., Disp: , Rfl: estradiol (ESTRACE) 1 MG Tablet, Take 1 mg by mouth., Disp: , Rfl: Fluticasone Furoate-Vilanterol (Breo Ellipta) 100-25 MCG/ACT AEROSOL POWDER, BREATH ACTIVATED, take 1 Puff by inhalation daily., Disp: 60 Each, Rfl: 5 levothyroxine (SYNTHROID) 150 MCG Tablet, Take 1 Tablet by mouth daily., Disp: 90 Tablet, Rfl: 1 losartan (COZAAR) 25 MG Tablet, Take 25 mg by mouth., Disp: , Rfl: metFORMIN (GLUCOPHAGE) 500 MG Tablet, TAKE 1 TABLET BY MOUTH EVERY DAY, Disp: 90 Tablet, Rfl: 3 metoprolol Succinate (TOPROL-XL) 25 MG TABLET SR 24 HR, TAKE 1 TABLET BY MOUTH EVERY DAY, Disp: 90 Tablet, Rfl: 1 No current facility-administered medications for this visit. ALLERGIES: -- Tylenol With Codeine #3 [Acetaminophen-Codeine] -- Unknown, Hives and Rash -- Reaction: RASH, HIVES, -- Codeine -- Rash -- Ultram [Tramadol] -- Nausea and Other (see Comments) -- vomitting PROBLEM LIST: Patient Active Problem List: Type 2 diabetes mellitus treated without insulin (HCC) Non morbid obesity Dyslipidemia Hyperlipidemia Tobacco abuse Hypertension, essential Anxiety Thoracolumbar back pain Abnormal thyroid ultrasound Obesity (BMI 30-39.9) Chronic joint pain Chronic prescription benzodiazepine use Neck pain Right leg paresthesias Left leg paresthesias Leg edema Claudication of both lower extremities (HCC) Gastroesophageal reflux disease Vocal cord polyp High blood pressure Chronic foot pain Personal history of tobacco use Lung nodule Bronchiolitis Interstitial lung disease (HCC) Noncompliance Insomnia 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) Muscle spasm S/P total thyroidectomy Long-term current use of levothyroxine Seasonal allergies NT SERVICE PROFESSIONAL Reason for Visit * Reason Comments Medication Refill Encounter Details Date Type Department Care Team (Late st Contact Info) Description 12/22/2022 Refill [facility] - Family Medicine - [place] [address] [place] [address] Wagner Moya APRN, WEBFED OFFSET PRESS OPERATOR #[address] [address] Medication Refill Social History Tobacco Use Types Packs/Day Years Used Date Smoking Tobacco: Every Day Cigarettes 1.3 47.1 Started: 1978 Smokeless Tobacco: Never Comments:Cutting down in and down 0.5 ppd as of 10/29/2022. Alcohol Use Standard Drinks/Week Comments Yes 0 (1 standard drink = 0.6 oz pur e alcohol) Occasionally/socially. PHQ-2 Answer Date Recorded Total Score - Questions 1-9 0 07/0 05/2020 Sexually Active Control Partners Comments Yes Comments [...] suspected to have Coronavirus/COVID-19? No / Unsure 12/08/2022 8:52 AM CLIENT SERVICE PROFESSIONAL documented as of this encounter Miscellaneous Notes * Telephone Encounter - Cecilia Chairez RN - 12/22/2022 12:38 PM CST I pended a referral - pt states she takes this for hormone replacement. Not sure what diagnosis youwanted on the referral so you will have to fill that part in as prompted. I pended the medication to you for 90 days. I also noted while looking back in her chart, you have been prescribing this medication for her since 2016. NT SERVICE PROFESSIONAL * Telephone Encounter - Erik Davis MD - 12/22/2022 11:57 AM CLIENT SERVICE PROFESSIONAL Cecilia, please check with her to see if she has a Flagman. If so, they should be prescribing it and she should ask them about refilling it. If not, I can refer her to a Flagman and I can prescribe it to her while she is waiting to see one. Let me know. Thanks! NT SERVICE PROFESSIONAL * Telephone Encounter - Wagner Moya APRN, CNP - 12/22/2022 11:52 AM CST Needs to discuss with Dr. Davis about if this is appropriate to continue or if he is comfortable filling it for her. NT SERVICE PROFESSIONAL * Telephone Encounter - Cecilia Chairez RN - 12/22/2022 11:39 AM CST Medication failed the protocol, provider to review and approve the medication order if appropriate. Requested Prescriptions Pending Prescriptions Disp Refills estradiol (ESTRACE) 1 MG Tablet [Pharmacy Med Name: ESTRADIOL 1 MG TABLET] 90 Tablet Sig: TAKE 1 TABLET BY MOUTH EVERY DAY Not Delegated - Estrogen and Estrogen Combinations Protocol Failed - 12/22/2022 12:03 AM Failed - This refill cannot be delegated Failed - Up to date with pap smear Health Maintenance Passed - Visit with relevant provider in past 12 months or upcoming 90 days Recent Visits Date Type Provider Dept 12/08/22 Office Visit Erik Davis MD [facility] 08/28/22 Office Visit MohErik mccarthy MD [facility] 04/28/22 Office Visit Erik Davis MD [facility] 01/22/22 Office Visit Erik Davis MD [facility] Showing recent visits within past 365 days and meeting all other requirements Future Appointments Date Type Provider Dept 03/09/23 Appointment Erik Davis MD [facility] Showing future appointments within next 90 days and meeting all other requirements NT SERVICE PROFESSIONAL * Telephone Encounter - Cecilia Chairez RN - 12/22/2022 11:39 AM CST Images from the original note were not included. Estradiol Dispensed Days Supply Quantity Provider Pharmacy ESTRADIOL 1 MG TABLET 09/26/2022 90 90 Each Wagner Moya APRN, WEBFED OFFSET PRESS OPERATOR [id number] NT SERVICE PROFESSIONAL documented in this encounter Plan of Treatment Upcoming Encounters Date Type Department Care Team (Late st Contact Info) Description 11/14/2025 1:45 PM CLIENT SERVICE PROFESSIONAL Office Visit [facility] - Family Medicine - [place] [address] [place] [address] Erik Davis MD #[address] [address] 12/11/2025 8:15 AM CLIENT SERVICE PROFESSIONAL Office Visit [facility] - Endocrinology - [place] [address] [place] [address] Kentrell Fenton MD #[address] [address] 03/06/2026 10:00 AM CDT Office Visit [facility] Oncology Services [address] [place] [address] Eugenio Thomason MD [address] [place] [address] Discharge Disposition: Discharged to home or Selfcare Scheduled Referrals Name Type Priority Associated Diagnoses Orde r Schedule EXTERNAL GYNECOLOGY REFERRAL Outpatient Referral Routine Hormone replacement therapy (HRT) Expected: 12/22/2022 (Approximate), Expires: 12/22/2023 documented as of this encounter Visit Diagnoses Diagnosis Hormone replacement therapy (HRT)- Primary documented in this encounter Additional Health Concerns Assessment Noted Time PHQ-9 Depression Total Score: 0 05/08/20 1:06 PM CDT documented as of this encounter Care Teams Production Pattern Maker Relationship Specialty Start Date End Date Erik Davis MD [address]2 [facility] [address] [place] [address] PCP - General Family Medicine 10/17/15 Kentrell Fenton MD [address]2 [facility] [address] [place] [address] Consulting Physician Endocrinology 08/22/22 Shankar Álvarez MD [address] [place] [address] Consulting Physician Medical Oncology 10/28/22 Eugenio Thomason MD [address] [place] [address] Consulting Physician Radiation Oncology 10/28/22 Arnaldo Headley MD [address] [address] Consulting Physician Otolaryngology 10/31/22 Estefani Thorne APRN, WEBFED OFFSET PRESS OPERATOR #2 [facility] [address] [place] [address] Nurse Practitioner Advanced Practice Nurse 05/27/22 Juanjose Woodson MD #[address] [address] Consulting Physician Colon and Rectal Surgery 03/21/24 documented as of this encounter
--- OUTSIDE RECORDS SUMMARY | 2025-10-01 15:21 | XMS_ITS | Encounter Summary ---
Author Organization [facility] Address [address] [place] [address] Phone Care Team Providers Care Membership Director Name Role Phone Erik Davis MD Primary Care Provider [phone] Kentrell Fenton MD Unavailable Shankar Álvarez MD Unavailable [phone] Eugenio Thomason MD Unavailable Arnaldo Headley MD Unavailable [phone] Estefani Thorne APRN, CNP Unavailable [phone] Juanjose Woodson MD Unavailable Reason for Visit * Reason Comments Medication Refill Encounter Details Date Type Department Care Team (Late st Contact Info) Description 04/01/2023 Refill [facility] - [facility] [address] [place] [address] Erik Davis MD #[address] [address] Medication Refill Social History Tobacco Use Types [...] Telephone Encounter - Cecilia Chairez RN - 04/01/2023 1:57 PM CDT Per nursing clinical judgement, provider to review and approve the medication(s) order(s) if appropriate. Requested Prescriptions Pending Prescriptions Disp Refills losartan (COZAAR) 25 MG Tablet [Pharmacy Med Name: LOSARTAN POTASSIUM 25 MG TAB] 180 Tablet 1 Sig: TAKE 1 TABLET BY MOUTH TWICE A DAY ARB Protocol Passed - 04/01/2023 12:03 AM Passed - Serum potassium on record in past 12 months POTASSIUM Date Value Ref Range Status 12/31/2022 3.8 3.5 - 5.1 mmol/L Final Passed - BP on record in the past year Clinician-entered: BP Readings from Last 3 Encounters: 03/09/23 124/66 02/02/23 118/78 01/27/23 128/76 Patient-entered: No data recorded Passed - Visit with relevant provider in past year or upcoming 90 days Recent Visits Date Type Provider Dept 03/09/23 Office Visit Erik Davis MD [facility] 12/08/22 Office Visit Erik Davis MD [facility] 08/28/22 Office Visit Erik Davis MD [facility] 04/28/22 Office Visit Erik Davis MD [facility] Showing recent visits within past 365 days and meeting all other requirements Future Appointments Date Type Provider Dept 06/09/23 Appointment Erik Davis MD [facility] Showing future appointments within next 90 days and meeting all other requirements Passed - GFR on record in past 12 months GFR, EST. NONAFRICAN Date Value Ref Range Status 12/31/2022 >60 >=60 Final documented in this encounter Plan of Treatment Upcoming Encounters Date Type Department Care Team (Late st Contact Info) Description 11/14/2025 1:45 PM PE TEACHER Office Visit [facility] Family Medicine - [place] [address] [place] [address] Erik Davis MD #2 [facility] [address] [place] [address] 12/11/2025 8:15 AM PE TEACHER Office Visit [facility] - Endocrinology - [place] [address] [place] [address] Kentrell Fenton MD #2 [facility] [address] [place] [address] 03/06/2026 10:00 AM CDT Office Visit [facility] Oncology Services [address] [place] [address] Eugenio Thomason MD [address] [place] [address] Discharge Disposition: Discharged to home or Selfcare documented as of this encounter Visit Diagnoses Not on filedocumented in this encounter Additional Health Concerns Assessment Noted Time PHQ-9 Depression Total Score: 0 05/08/20 20 1:06 PM CDT documented as of this encounter Care Teams Membership Director Relationship Specialty Start Date End Date Erik Davis MD [address]2 [facility] [address] [place] [address] PCP - General Family Medicine 10/17/15 Kentrell Fenton MD [address]2 [facility] [address] [place] [address] Consulting Physician Endocrinology 08/22/22 Shankar Álvarez MD [address] [place] [address] Consulting Physician Medical Oncology 10/28/22 Eugenio Thomason MD [address] [place] [address] Consulting Physician Radiation Oncology 10/28/22 Arnaldo Headley MD [address] [facility] [address] [place] [address] Consulting Physician Otolaryngology 10/31/22 Estefani Thorne APRN, EMERITA #2 [facility] [address] [place] [address] Nurse Practitioner Advanced Practice Nurse 05/27/22 Juanjose Woodson MD #2 [facility] [address] [place] [address] Consulting Physician Colon and Rectal Surgery 03/21/24 documented as of this encounter
--- OUTSIDE RECORDS SUMMARY | 2025-10-01 15:22 | XMS_ITS | Encounter Summary ---
Author Organization [facility] Address [address] [place] [address] Phone Care Team Providers Care Control Panel Builder Name Role Phone Erik Davis MD Primary Care Provider [phone] Kentrell Fenton MD Unavailable Shankar Álvarez MD Unavailable Eugenio Thomason MD Unavailable Arnaldo Headley MD Unavailable Estefani Thorne APRN, CNP Unavailable [phone] Juanjose Woodson MD Unavailable Reason for Visit * Reason Comments Medication Refill Encounter Details Date Type Department Care Team (Late st Contact Info) Description 04/14/2024 Refill [facility] - Family Medicine [facility] [address] [place] [address] Erik Davis MD #[address] [address] Medication Refill Social History Tobacco Use Types [...] 03/02/2023 Sexually Active Control Partners Comments Yes Female Comments No Sex and Gender Information Value Date Recorded Sex Assigned at Not on file Legal Sex Female 12:41 AM CDT Gender Identity Not on file Sexual Orientation Not on file documented as of this encounter Miscellaneous Notes * Telephone Encounter - Cecilia Chairez RN - 04/14/2024 9:20 AM CDT Medication failed the protocol, provider to review and approve the medication order if appropriate. Requested Prescriptions Pending Prescriptions Disp Refills atorvastatin (LIPITOR) 10 MG Tablet [Pharmacy Med Name: ATORVASTATIN 10 MG TABLET] 45 Tablet 1 Sig: TAKE 1 TABLET BY MOUTH EVERY OTHER DAY Hmg CoA Reductase Inhibitors Protocol Failed - 04/14/2024 12:52 AM Failed - Lipid panel in past 12 months LDL Date Value Ref Range Status 12/31/2022 89 5 - 130 mg/dL Final HDL CHOLESTEROL Date Value Ref Range Status 12/31/2022 35.4 (L) >40 mg/dL Final CHOLESTEROL Date Value Ref Range Status 12/31/2022 157 <=200 mg/dL Final TRIGLYCERIDES Date Value Ref Range Status 12/31/2022 163 (H) <150 mg/dL Final VLDL Date Value Ref Range Status 12/31/2022 33 5 - 55 mg/dL Final CHOL/HDL RATIO Date Value Ref Range Status 12/31/2022 4.4 0.0 - 4.4 Final NON-HDL CHOLESTEROL Date Value Ref Range Status 12/31/2022 121.6 <130 mg/dL Final Failed - CMP in past 12 months SODIUM Date Value Ref Range Status 12/31/2022 136 136 - 144 mmol/L Final POTASSIUM Date Value Ref Range Status 12/31/2022 3.8 3.5 - 5.1 mmol/L Final CHLORIDE Date Value Ref Range Status 12/31/2022 100 100 - 110 mmol/L Final CO2, VENOUS Date Value Ref Range Status 12/31/2022 27 22 - 32 mmol/L Final ANION GAP Date Value Ref Range Status 12/31/2022 12.8 8.0 - 20.0 mmol/L Final GLUCOSE Date Value Ref Range Status 12/31/2022 126 (H) 70 - 99 mg/dL Final BUN Date Value Ref Range Status 12/31/2022 19 8 - 23 mg/dL Final CREATININE - POCT Date Value Ref Range Status 08/21/2022 0.5 (L) 0.6 - 1.3 mg/dL Final CREATININE, BLOOD Date Value Ref Range Status 12/31/2022 0.59 (L) 0.60 - 1.10 mg/dL Final BUN/CREATININE RATIO Date Value Ref Range Status 12/31/2022 32 (H) 12 - 20 ratio Final TOTAL PROTEIN Date Value Ref Range Status 12/31/2022 7.4 6.0 - 8.3 g/dL Final ALBUMIN Date Value Ref Range Status 12/31/2022 4.5 3.5 - 5.2 g/dL Final Comment: The colormetric methods used for the determination of Albumin may lead to falsely elevated test results in patients suffering from renal failure or insufficiency due to interference with other proteins. A/G RATIO Date Value Ref Range Status 12/31/2022 1.6 1.0 - 2.0 Final CALCIUM Date Value Ref Range Status 12/31/2022 8.9 8.9 - 10.3 mg/dL Final T BILI Date Value Ref Range Status 12/31/2022 0.3 <=1.2 mg/dL Final SGOT (AST) Date Value Ref Range Status 12/31/2022 19 <=32 U/L Final SGPT (ALT) Date Value Ref Range Status 12/31/2022 16 <=41 U/L Final ALKALINE PHOSPHATASE Date Value Ref Range Status 12/31/2022 64 35 - 105 U/L Final GFR, EST. NONAFRICAN Date Value Ref Range Status 12/31/2022 >60 >=60 Final GFR, EST. Date Value Ref Range Status 12/31/2022 >60 >=60 Final GFR, ESTIMATED Date Value Ref Range Status 12/31/2022 >60 >=60 Final Comment: Creatinine Clearance is the preferred criteria for selecting drug dose adjustments in renally impaired patients. The GFR is provided as additional pertinent clinical information. GFR is reported in mL/min/1.73 sq m. Calculation based on the Chronic Kidney Disease Epidemiology Collaboration (CKD- EPI) equation refitwithout adjustment for race. IS THE PATIENT REQUIRED TO BE FASTING? Date Value Ref Range Status 12/31/2022 No Final Passed - Visit with relevant provider in past 12 months or upcoming 90 days Recent Visits Date Type Provider Dept 02/02/24 Office Visit Erik Davis MD [facility] 08/03/23 Office Visit Erik Davis MD [facility] Showing recent visits within past 365 days and meeting all other requirements Future Appointments No visits were found meeting these conditions. Showing future appointments within next 90 days and meeting all other requirements documented in this encounter Plan of Treatment Upcoming Encounters Date Type Department Care Team (Late st Contact Info) Description 11/14/2025 1:45 PM GO CART MECHANIC Office Visit [facility] Family Medicine [facility] [address] [place] [address] Erik Davis MD #[address] [address] 12/11/2025 8:15 AM GO CART MECHANIC Office Visit [facility] Endocrinology - [place] [address] [place] [address] Kentrell Fenton MD #[address] [address] 03/06/2026 10:00 AM CDT Office Visit [facility] Oncology Services [address] [place] [phone] Eugenio Thomason MD [address] [place] [address] Discharge Disposition: Discharged to home or Selfcare documented as of this encounter Visit Diagnoses Not on filedocumented in this encounter Additional Health Concerns Assessment Noted Time PHQ-9 Depression Total Score: 0 05/08/20 1:06 PM CDT documented as of this encounter Care Teams Control Panel Builder Relationship Specialty Start Date End Date Erik Davis MD #2 [facility] [address] [place] [address] PCP - General Family Medicine 10/17/15 Kentrell Fenton MD #2 [facility] [address] [place] [phone] Consulting Physician Endocrinology 08/22/22 Shankar Álvarez MD [address] [place] [address] Consulting Physician Medical Oncology 10/28/22 Eugenio Thomason MD [address] [place] [address] Consulting Physician Radiation Oncology 10/28/22 Arnaldo Headley MD [address] [facility] [address] [place] [address] Consulting Physician Otolaryngology 10/31/22 Estefani Thorne APRN, CNP #2 [facility] [address] [place] [address] Nurse Practitioner Advanced Practice Nurse 05/27/22 Juanjose Woodson MD #2 [facility] [address] [place] [address] Consulting Physician Colon and Rectal Surgery 03/21/24 documented as of this encounter
--- OUTSIDE RECORDS SUMMARY | 2025-10-01 15:22 | XMS_ITS | Encounter Summary ---
Author Organization [facility] Address [address] [place] [address] Phone Care Team Providers Care Utility System Repairer Name Role Phone Erik Davis MD Primary Care Provider [phone] Kentrell Fenton MD Unavailable Shankar Álvarez MD Unavailable Eugenio Thomason MD Unavailable [phone] Arnaldo Headley MD Unavailable [phone] Estefani Thorne APRN, CNP Unavailable [phone] Juanjose Woodson MD Unavailable Reason for Visit * Reason Comments Medication Refill Encounter Details Date Type Department Care Team (Late st Contact Info) Description 09/25/2022 [facility]ill [facility] #2 [place] [address] Erik Davis MD #[address] [address] Medication Refill Social History Tobacco Use Types Packs/Day Years Used Date Smoking Tobacco: Every Day Cigarettes 1.5 45 Smokeless Tobacco: Never Comments:1-2 packs a day Alcohol Use Standard Drinks/Week Comments Yes 0 (1 standard drink = 0.6 oz pur e alcohol) socially PHQ-2 Answer Date Recorded Total Score - Questions 1-9 0 070 05/2020 Sexually Active Control Partners Comments Yes [...] suspected to have Coronavirus/COVID-19? No / Unsure 09/05/2022 8:58 AM CDT documented as of this encounter Miscellaneous Notes * Telephone Encounter - Mi Jewell RN - 09/26/2022 9:15 AM GARLAND MAKER Medication failed the protocol, provider to review and approve the medication order if appropriate. Requested Prescriptions Pending Prescriptions Disp Refills estradiol (ESTRACE) 1 MG Tablet [Pharmacy Med Name: ESTRADIOL 1 MG TABLET] 90 Tablet 3 Sig: TAKE 1 TABLET BY MOUTH EVERY DAY Not Delegated - Estrogen and Estrogen Combinations Protocol Failed - 09/25/2022 1:47 PM Failed - This refill cannot be delegated Failed - Up to date with pap smear Health Maintenance Passed - Visit with relevant provider in past 12 months or upcoming 90 days Recent Visits Date Type Provider Dept 08/28/22 Office Visit Erik Davis MD [facility] 04/28/22 Office Visit Erik Davis MD [facility] 01/22/22 Office Visit Erik Davis MD [facility] Showing recent visits within past 365 days and meeting all other requirements Future Appointments Date Type Provider Dept 12/08/22 Appointment Erik Davis MD [facility] Showing future appointments within next 90 days and meeting all other requirements AND MAKER documented in this encounter Plan of Treatment Upcoming Encounters Date Type Department Care Team (Late st Contact Info) Description 11/14/2025 1:45 PM GARLAND MAKER Office Visit [facility] - Family Medicine - [place] [address] [place] [address] Erik Davis MD #2 [facility] [address] [place] [address] 12/11/2025 8:15 AM GARLAND MAKER [facility] Visit [facility] - Endocr[facility]ology - [place] #2 [place] [address] Kentrell Fenton MD #2 [facility] [address] [place] [address] 03/06/2026 10:00 AM CDT Office Visit [facility] Oncology Services [address] [place] [address] Eugenio Thomason MD [address] [place] [address] Discharge Disposition: Discharged to home or Selfcare documented as of this encounter Visit Diagnoses Not on filedocumented in this encounter Additional Health Concerns Assessment Noted Time PHQ-9 Depression Total Score: 0 05/08/20 20 1:06 PM CDT documented as of this encounter Care Teams Utility System Repairer Relationship Specialty Start Date End Date Erik Davis MD #[address] [address] PCP - General Family Medicine 10/17/15 Kentrell Fenton MD #[address] [address] Consulting Physician Endocrinology 08/22/22 Shankar Álvarez MD [address] [place] [address] Consulting Physician Medical Oncology 10/28/22 Eugenio Thomason MD [address] [place] [address] Consulting Physician Radiation Oncology 10/28/22 Arnaldo Headley MD [address] [facility] [address] [place] [address] Consulting Physician Otolaryngology 10/31/22 Estefani Thorne APRN, IMPORT MANAGER #2 [facility] [address] [place] [address] Nurse Practitioner Advanced Practice Nurse 05/27/22 Juanjose Woodson MD #2 [facility] [address] [place] [address] Consulting Physician Colon and Rectal Surgery 03/21/24 documented as of this encounter
--- OUTSIDE RECORDS SUMMARY | 2025-10-01 15:22 | XMS_ITS | Encounter Summary ---
Author Organization [facility] Address [address] [place] [address] Phone Care Team Providers Care Assessment Director Name Role Phone Erik Davis MD Primary Care Provider [phone] Kentrell Fenton MD Unavailable Shankar Álvarez MD Unavailable Eugenio Thomason MD Unavailable [phone] Arnaldo Headley MD Unavailable [phone] Estefani Thorne APRN, [facility] Unavailable [phone] Juanjose Woodson MD Unavailable Encounter Details Date Type Department Care Team (Late st Contact Info) Description 11/10/2022 Telephone [facility] Oncology Services [address] [place] [address] Jes Winn, TALENT DEVELOPMENT ANALYST [place] Social History Tobacco Use Types Packs/Day Years [...] suspected to have Coronavirus/COVID-19? No / Unsure 11/11/2022 7:04 AM DATA MODELER documented as of this encounter Miscellaneous Notes * Telephone Encounter - Jes Winn MSW - 11/10/2022 1:05 PM DATA MODELER Spoke with Elaine by phone. She denied having unmet needs at this time. She is able to manage her ADL independently. MODELER documented in this encounter Plan of Treatment Upcoming Encounters Date Type Department Care Team (Late st Contact Info) Description 11/14/2025 1:45 PM DATA MODELER Office Visit [facility] Family Medicine [facility] #2 [place] [address] Erik Davis MD #2 [facility] [address] [place] [address] 12/11/2025 8:15 AM DATA MODELER Office Visit [facility] - Endocrinology [facility] #2 [place] [address] Kentrell Fenton MD #2 [facility] [address] [place] [address] 03/06/2026 10:00 AM CDT Office Visit [facility] Oncology Services [address] [place] [address] Eugenio Thomason MD [address] [place] [address] Discharge Disposition: Discharged to home or Selfcare documented as of this encounter Visit Diagnoses Not on filedocumented in this encounter Additional Health Concerns Assessment Noted Time PHQ-9 Depression Total Score: 0 05/08/20 20 1:06 PM CDT documented as of this encounter Care Teams Assessment Director Relationship Specialty Start Date End Date Erik Davis MD #2 [facility] [address] [place] [address] PCP - General Family Medicine 10/17/15 Kentrell Fenton MD #2 [facility] [address] [place] [phone] Consulting Physician Endocrinology 08/22/22 Shankar Álvarez MD [address] [place] [address] Consulting Physician Medical Oncology 10/28/22 Eugenio Thomason MD [address] [place] [address] Consulting Physician Radiation Oncology 10/28/22 Arnaldo Headley MD [address] [facility] [address] [place] [address] Consulting Physician Otolaryngology 10/31/22 Estefani Thorne APRN, SCRAP HOOKER #2 [facility] [address] [place] [address] Nurse Practitioner Advanced Practice Nurse 05/27/22 Juanjose Woodson MD #2 [facility] [address] [place] [address] Consulting Physician Colon and Rectal Surgery 03/21/24 documented as of this encounter
--- OUTSIDE RECORDS SUMMARY | 2025-10-01 15:22 | XMS_ITS | Encounter Summary ---
Author Organization [facility] Address [address] [place] [address] Phone Care Team Providers Care Flush Tester Name Role Phone Erik Davis MD Primary Care Provider [phone] Kentrell Fenton MD Unavailable Shankar Álvarez MD Unavailable Eugenio Thomason MD Unavailable Arnaldo Headley MD Unavailable [phone] Estefani Thorne APRN, CNP Unavailable Juanjose Woodson MD Unavailable Reason for Visit * Reason Comments Medication Refill Encounter Details Date Type Department Care Team (Late st Contact Info) Description 09/30/2022 Refill [facility] #[address] [place] [address] Erik Davis MD #[address] [address] Medication Refill Social History Tobacco Use Types Packs/Day Years Used Date Smoking Tobacco: Every Day Cigarettes 1.5 45 Smokeless Tobacco: Never Comments:1-2 packs a day Alcohol Use Standard Drinks/Week Comments Yes 0 (1 standard drink = 0.6 oz pur e alcohol) socially PHQ-2 Answer Date Recorded Total Score - Questions 1-9 0 05/2020 Sexually Active Control Partners Comments Yes [...] encounter Miscellaneous Notes * Telephone Encounter - Juju Simmons RN - 10/01/2022 8:05 AM CST Medication failed the protocol, provider to review and approve the medication order if appropriate. Requested Prescriptions Pending Prescriptions Disp Refills metFORMIN (GLUCOPHAGE) 500 MG Tablet [Pharmacy Med Name: METFORMIN HCL 500 MG TABLET] 90 Tablet 3 Sig: TAKE 1 TABLET BY MOUTH EVERY DAY Biguanides Protocol Failed - 09/30/2022 6:55 PM Failed - HgA1C on record in past 6 months HGB-A1C Date Value Ref Range Status 07/23/2021 5.8 4.0 - 6.0 % Final Failed - GFR on record in past 6 months GFR, EST. NONAFRICAN Date Value Ref Range Status 07/23/2021 >60 >=60 Final Passed - Visit with relevant provider in past 6 months or upcoming 90 days Recent Visits Date Type Provider Dept 08/28/22 Office Visit Erik Davis MD [facility] 04/28/22 Office Visit Erik Davis MD [facility] Showing recent visits within past 182 days and meeting all other requirements Future Appointments Date Type Provider Dept 12/08/22 Appointment Erik Davis MD [facility] Showing future appointments within next 90 days and meeting all other requirements OLEUM PRODUCTS DISTRICT SUPERVISOR documented in this encounter Plan of Treatment Upcoming Encounters Date Type Department Care Team (Late st Contact Info) Description 11/14/2025 1:45 PM PETROLEUM PRODUCTS DISTRICT SUPERVISOR Office Visit [facility] - [facility] Medicine [facility] #[address] [place] [address] Erik Davis MD #[address] [place] [address] 12/11/2025 8:15 AM PETROLEUM PRODUCTS DISTRICT SUPERVISOR Office Visit [facility] - Endocrinology - [place] #2 [facility] [place] [address] Kentrell Fenton MD #[address] [place] [address] 03/06/2026 10:00 AM CDT Office Visit [facility] - Cancer Center Oncology Services [address] [place] [phone] Eugenio Thomason MD [address] [place] [address] Discharge Disposition: Discharged to home or Selfcare documented as of this encounter Visit Diagnoses Not on filedocumented in this encounter Additional Health Concerns Assessment Noted Time PHQ-9 Depression Total Score: 0 05/08/20 20 1:06 PM CDT documented as of this encounter Care Teams Flush Tester Relationship Specialty Start Date End Date Erik Davis MD #[address] [address] PCP - General Family Medicine 10/17/15 Kentrell Fenton MD #[address] [phone] Consulting Physician Endocrinology 08/22/22 Shankar Álvarez MD [address] [place] [address] Consulting Physician Medical Oncology 10/28/22 Eugenio Thomason MD [address] [place] [address] Consulting Physician Radiation Oncology 10/28/22 Arnaldo Headley MD [address] [address] Consulting Physician Otolaryngology 10/31/22 Estefani Thorne APRN, INTERNAL COMMUNICATIONS INTERN #[address] [address] Nurse Practitioner Advanced Practice Nurse 05/27/22 Juanjose Woodson MD #[address] [address] Consulting Physician Colon and Rectal Surgery 03/21/24 documented as of this encounter
--- OUTSIDE RECORDS SUMMARY | 2025-10-01 15:22 | XMS_ITS | Encounter Summary ---
Author Organization [facility] Address [address] [place] [address] Phone Care Team Providers Care Annealing Furnace Tender Name Role Phone Erik Davis MD Primary Care Provider [phone] Kentrell Fenton MD Unavailable Shankar Álvarez MD Unavailable [phone] Eugenio Thomason MD Unavailable Arnaldo Headley MD Unavailable [phone] Estefani Thorne APRN, CNP Unavailable Juanjose Woodson MD Unavailable Reason for Visit * Reason Comments Medication Refill Encounter Details Date Type Department Care Team (Late st Contact Info) Description 12/17/2023 Refill [facility] Medicine [facility] #2 [place] [address] rEik Davis MD #[address] [address] Medication Refill Social History Tobacco Use Types [...] encounter Miscellaneous Notes * Telephone Encounter - Sena Walker RN - 12/17/2023 1:23 PM METAL DRAWER Medication failed the protocol, provider to review and approve the medication order if appropriate. Requested Prescriptions Pending Prescriptions Disp Refills estradiol (ESTRACE) 1 MG Tablet [Pharmacy Med Name: ESTRADIOL 1 MG TABLET] 90 Tablet 2 Sig: TAKE 1 TABLET BY MOUTH EVERY DAY Not Delegated - Estrogen and Estrogen Combinations Protocol Failed - 12/17/2023 12:04 AM Failed - This refill cannot be delegated Failed - Up to date with pap smear Health Maintenance Passed - Visit with relevant provider in past 12 months or upcoming 90 days Recent Visits Date Type Provider Dept 08/03/23 Office Visit Erik Davis MD [facility] 03/09/23 Office Visit Erik Davis MD [facility] Showing recent visits within past 365 days and meeting all other requirements Future Appointments Date Type Provider Dept 02/02/24 Appointment Erik Davis MD [facility] Showing future appointments within next 90 days and meeting all other requirements L DRAWER documented in this encounter Plan of Treatment Upcoming Encounters Date Type Department Care Team (Late st Contact Info) Description 11/14/2025 1:45 PM METAL DRAWER Office Visit [facility] - Family Medicine - [place] [address] [place] [address] Erik Davis MD #[address] [address] 12/11/2025 8:15 AM METAL DRAWER [facility] Visit [facility] - Endocr[facility]ology - [place] #2 [place] [address] Kentrell Fenton MD #[address] [address] 03/06/2026 10:00 AM CDT [facility] [address] [place] [address] Eugenio Thomason MD [address] [place] [address] Discharge Disposition: Discharged to home or Selfcare documented as of this encounter Visit Diagnoses Not on filedocumented in this encounter Additional Health Concerns Assessment Noted Time PHQ-9 Depression Total Score: 0 05/08/20 20 1:06 PM CDT documented as of this encounter Care Teams Annealing Furnace Tender Relationship Specialty Start Date End Date Erik Davis MD #[address] [address] PCP - General Family Medicine 10/17/15 Kentrell Fenton MD #[address] [address] Consulting Physician Endocrinology 08/22/22 Shankar Álvarez MD [address] [place] [address] Consulting Physician Medical Oncology 10/28/22 Eugenio Thomason MD [address] [place] [address] Consulting Physician Radiation Oncology 10/28/22 Arnaldo Headley MD [address] [address] Consulting Physician Otolaryngology 10/31/22 Estefani Thorne APRN, PLASTER PATTERN CASTER #2 [facility] [address] [place] [address] Nurse Practitioner Advanced Practice Nurse 05/27/22 Juanjose Woodson MD #2 [facility] [address] [place] [address] Consulting Physician Colon and Rectal Surgery 03/21/24 documented as of this encounter
--- OUTSIDE RECORDS SUMMARY | 2025-10-01 15:22 | XMS_ITS ---
Care Plan - [facility] Created on: October 01, 2025 ANGEL BLOOM : 1960 Sex: Female Author Organization [facility] Address [address] [place] [address] Phone Care Team Providers Care Beverage Steward Name Role Phone Unavailable Unavailable Unavailable
--- OUTSIDE RECORDS SUMMARY | 2025-10-01 15:22 | XMS_ITS | Encounter Summary ---
Author Organization [facility] Address [address] [place] [address] Phone Care Team Providers Care Mental Health Director Name Role Phone Erik Davis MD Primary Care Provider [phone] Kentrell Fenton MD Unavailable Shankar Álvarez MD Unavailable Eugenio Thomason MD Unavailable Arnaldo Headley MD Unavailable [phone] Estefani Thorne APRN TRAFFIC OFFICER Unavailable uJanjose Woodson MD Unavailable Encounter Details Date Type Department Care Team (Late st Contact Info) Description [facility] [address] [place] [address] Shankar Álvarez MD [address] [place] [address] Social History Tobacco Use Types Packs/Day Years [...] encounter Miscellaneous Notes * Telephone Encounter - Medina Mao - 2022 12:54 PM CST Referral faxed to Dr. Ben Edward at [facility] @ [phone]. TRIMMER documented in this encounter Plan of Treatment Upcoming Encounters Date Type Department Care Team (Late st Contact Info) Description 11/14/2025 1:45 PM WET TRIMMER Office Visit [facility] - Family Medicine [facility] #2 [place] [address] Erik Davis MD #2 [facility] [address] [place] [address] 12/11/2025 8:15 AM WET TRIMMER Office Visit [facility] - Endocrinology [facility] #2 [place] [address] Kentrell Fenton MD #2 [facility] [address] [place] [address] 03/06/2026 10:00 AM CDT Office Visit [facility] Oncology Services [address] [place] [address] Eugenio Thomason MD [address] [place] [address] Discharge Disposition: Discharged to home or Selfcare documented as of this encounter Visit Diagnoses Not on filedocumented in this encounter Additional Health Concerns Assessment Noted Time PHQ-9 Depression Total Score: 0 05/08/20 20 1:06 PM CDT documented as of this encounter Care Teams Mental Health Director Relationship Specialty Start Date End Date Erik Davis MD #2 [facility] [address] [place] [address] PCP - General Family Medicine 10/17/15 Kentrell Fenton MD #2 [facility] [address] [place] [address] Consulting Physician Endocrinology 08/22/22 Shankar Álvarez MD [address] [place] [address] Consulting Physician Medical Oncology 10/28/22 Eugenio Thomason MD [address] [place] [address] Consulting Physician Radiation Oncology 10/28/22 Arnaldo Headley MD [address] [facility] [address] [place] [address] Consulting Physician Otolaryngology 10/31/22 Estefani Thorne APRN, EMERITA #2 [facility] [address] [place] [address] Nurse Practitioner Advanced Practice Nurse 05/27/22 Juanjose Woodson MD #2 [facility] [address] [place] [address] Consulting Physician Colon and Rectal Surgery 03/21/24 documented as of this encounter
--- OUTSIDE RECORDS SUMMARY | 2025-10-01 15:22 | XMS_ITS | Encounter Summary ---
Author Organization [facility] Address [address] [place] [address] Phone Care Team Providers Care Ground Support Agent Name Role Phone Erik Davis MD Primary Care Provider [phone] Kentrell Fenton MD Unavailable Shankar Álvarez MD Unavailable Eugenio Thomason MD Unavailable Arnaldo Headley MD Unavailable Estefani Thorne APRN, SUPERVISOR PIG MACHINE Unavailable [phone] Juanjose Woodson MD Unavailable Encounter Details Date Type Department Care Team (Late st Contact Info) Description 05/30/2025 Telephone [facility] Central Scheduling [address] [place] [phone] Erik Davis MD #[address] [address] Social History Tobacco Use Types Packs/Day Years Used Date Smoking Tobacco: Every Day Cigarettes 1.3 47.4 Started: 1978 Smokeless Tobacco: Never Comments:Cutting down in and down 0.5 ppd as of 10/29/2022. Alcohol Use Standard Drinks/Week Comments Yes 0 (1 standard drink = 0.6 oz pur e alcohol) Social, don't drink weekly [facility] Utilities Answer Date Recorded In the past 12 months has e electric, gas, oil, or water company threatened to shut off services in your home? Patient declined 01/29/2025 Social Connection and Isolation Panel Answer Date Recorded In a typical week, how many times do you talk on the phone with family, friends, or neighbors? Patient declined 01/29/2025 How often do you get togethe r with friends or relatives? Patient declined 01/29/2025 How often do you attend alevism or jain serv ices? Patient declined 01/29/2025 Do you belong to any clubs o r organizations such as alevism groups, unions, fraternal or athletic groups, or [...] Score - Questions 1-9 0 04/0 11/2024 [facility] [place] of Occupat ional Health - Occupational Stress Questionnaire Answer [...] or rent on time? Patient declined 01/30/20 Number of Times Moved in the Last Year Not on fi le 01/29/2025 At any time in the past 12 m [facility], were you homeless or living in a correction (including now)? Patient declined 01/29/2025 Education Answer [...] encounter Miscellaneous Notes * Telephone Encounter - Erik Davis MD - 05/30/2025 11:25 AM CDT Thanks! * Telephone Encounter - Kathryn Campbell Saud - 05/30/2025 11:01 AM CDT I reached out to the patient as she is needing additional views of her left breast. We are booked out here at [facility] for DX mamms until the end of June and we do not have a template ready for the new radiologist that are coming on board. She has chosen to go have this done at [facility]. I will send the orders and push the imaging to them for comparison. She will call and schedule post the orders being sent. documented in this encounter Plan of Treatment Upcoming Encounters Date Type Department Care Team (Late st Contact Info) Description 11/14/2025 1:45 PM RADIOLOGIST DIAGNOSTIC Office Visit [facility] Family Medicine [facility] #2 [place] [address] Erik Davis MD #2 [facility] [address] [place] [address] 12/11/2025 8:15 AM RADIOLOGIST DIAGNOSTIC Office Visit [facility] Endocrinology [facility] #2 [place] [address] Kentrell Fenton MD #[address] [address] 03/06/2026 10:00 AM CDT Office Visit [facility] Center Oncology Services [address] [place] [phone] Eugenio Thomason MD [address] [place] [address] Discharge Disposition: Discharged to home or Selfcare documented as of this encounter Goals Goal Patient Goal Type Associated Problems [...] METFORMIN PATTERN CONCERN No Erik Davis MD documented as of this encounter Visit Diagnoses Not on filedocumented in this encounter Additional Health Concerns Active Problems Noted Date Diagnosed Date [facility] HYPERTENSION CONCERN (P ATIENT NOT ON HIGH BLOOD PRESSURE MEDICATIONS) 04/26/2024 [facility] TYPE 2 DIABETES CONCERN 04/26/2024 [facility] TYPE 2 DIABETES METFORMIN PATTERN CONCERN 0 04/26/2024 Assessment Noted Time PHQ-9 Depression Total Score: 0 02/01/20 9:39 AM CDT documented as of this encounter Care Teams Ground Support Agent Relationship Specialty Start Date End Date Erik Davis MD #2 [facility] [address] [place] [address] PCP - General Family Medicine 10/17/15 Kentrell Fenton MD #2 [facility] [address] [place] [address] Consulting Physician Endocrinology 08/22/22 Shankar Álvarez MD [address] [place] [address] Consulting Physician Medical Oncology 10/28/22 Eugenio Thomason MD [address] [place] [address] Consulting Physician Radiation Oncology 10/28/22 Arnaldo Headley MD 3655 [facility] [address] [place] [address] Consulting Physician Otolaryngology 10/31/22 Estefani Thorne APRN, SUPERVISOR PIG MACHINE #2 [facility] [address] [place] [address] Nurse Practitioner Advanced Practice Nurse 05/27/22 Juanjose Woodson MD #[address] [address] Consulting Physician Colon and Rectal Surgery 03/21/24 documented as of this encounter
--- OUTSIDE RECORDS SUMMARY | 2025-10-01 15:22 | XMS_ITS ---
Author Organization [facility] Address [address] [place] [address] Phone Care Team Providers Care Silk Conditioner Name Role Phone Unavailable Unavailable Unavailable Problems Includes: Active, inactive, and resolved Problems All Visits Onset Date Resolved Date Provider Condition S tatus History of Abnormal Pap Smear of Cervix 06/07/2013 BUTCH LEON RN [facility] Active Last Documented On 06/07/2013 11:01AM ; [facility] Note: Unchanged History of Cervical Dysplasia 06/07/2013 BUTCH LEON RN [facility] Active Last Documented On 06/07/2013 11:01AM ; [facility] Note: Unchanged History of Diabetes Mellitus Type 2 06/07/2013 BUTCH LEON RN [facility] Active Last Documented On 06/07/2013 11:01AM ; [facility] Note: Unchanged History of Essential Hypertension Benign 06/07/2013 BUTCH LEON RN [facility] Active Last Documented On 06/07/2013 11:01AM ; [facility] Note: Unchanged History of Human Papilloma Virus Infection 06/07/2013 BUTCH LEON RN [facility] Active Last Documented On 06/07/2013 11:01AM ; [facility] Note: Unchanged History of Hyperlipidemia 06/07/2013 BUTCH LEON RN [facility] Active Last Documented On 06/07/2013 11:01AM ; [facility] Note: Unchanged Smoking Cigarettes 06/07/2013 BUTCH AN RN [facility] Active Last Documented On 06/07/2013 11:01AM ; [facility] Note: Unchanged Plan of Treatment Instructions to patient Instructions for patient : B reast Self Exam discussed and technique reviewed Last Documented On 3 8:34AM ; [facility] Instructed to call if excess melvin bleeding or abdominal/pelvic pain Last Documented On 3 8:34AM ; [facility] Instructions For Patient: Mo nthly Self Breast Exam Last Documented On 3 8:34AM ; [facility] Recommend diet and exercise at least 30 min three times per week Last Documented On 3 8:34AM ; [facility] Recommend CBC, TSH, fasting glucose, fasting lipid panel if patient aged 25 or older Last Documented On 3 8:34AM ; [facility] Recommend preventative vacci nation including but not limited to influenza/flu vaccine, DTP, Rubella, Hepatitis B vaccination series Last Documented On 3 8:34AM ; [facility] Education and Decision Aids were provided during visit for: Discussed smoking and drug u se PT DESIRES TO QUIT SMOKING AND WILL CONTACT DR. JASON FOR ZBAN RX CHANTIX NOT A COVERED RX Last Documented On 3 10:56AM ; [facility] Patient Education: Daily amado cium and vitamin D Last Documented On 3 8:34AM ; [facility] Patient Education: weight be aring exercise Last Documented On 3 8:34AM ; [facility] Patient will maintain adequa te intake of dietary Ca+ and Mg+ Last Documented On 3 8:34AM ; [facility] Assessments Includes: Assessments for all patient encounters Findings Encounter Date MAMMOGRAM SCREENING NEW PRESIDENT AND CHIEF COMMERCIAL OFFICER EXAM with BUTCH PINA RN [facility] 06/07/2013 Last Documented On 3 11:01AM ; [facility] NORMAL FEMALE EXAM NEW PRESIDENT AND CHIEF COMMERCIAL OFFICER EXAM with BUTCH JIMENES RN [facility] 06/07/2013 Last Documented On 3 11:01AM ; [facility] Risk: tobacco use NEW PRESIDENT AND CHIEF COMMERCIAL OFFICER EXAM with BUTCH Moore RN [facility] 06/07/2013 Last Documented On 3 11:01AM ; [facility] Routine gynecological exam NEW PRESIDENT AND CHIEF COMMERCIAL OFFICER EXAM with TIGRE LEON RN [facility] 06/07/2013 Last Documented On 3 11:01AM ; [facility] Instructions Includes: Instructions for all patient encounters Instructions to patient Instructions for patient : B reast Self Exam discussed and technique reviewed Last Documented On 3 8:34AM ; [facility] Instructed to call if excess melvin bleeding or abdominal/pelvic pain Last Documented On 3 8:34AM ; [facility] Instructions For Patient: Mo nthly Self Breast Exam Last Documented On 3 8:34AM ; [facility] Recommend diet and exercise at least 30 min three times per week Last Documented On 3 8:34AM ; [facility] Recommend CBC, TSH, fasting glucose, fasting lipid panel if patient aged 25 or older Last Documented On 3 8:34AM ; [facility] Recommend preventative vacci nation including but not limited to influenza/flu vaccine, DTP, Rubella, Hepatitis B vaccination series Last Documented On 3 8:34AM ; [facility] Education and Decision Aids were provided during visit for: Discussed smoking and drug u se PT DESIRES TO QUIT SMOKING AND WILL CONTACT DR. JASON FOR ZBAN RX CHANTIX NOT A COVERED RX Last Documented On 3 10:56AM ; [facility] Patient Education: Daily amado cium and vitamin D Last Documented On 3 8:34AM ; [facility] Patient Education: weight be aring exercise Last Documented On 3 8:34AM ; [facility] Patient will maintain adequa te intake of dietary Ca+ and Mg+ Last Documented On 3 8:34AM ; [facility] Medical Equipment - Implanted Devices Includes: Current and historical Devices No Medical Equipment Recorded Medications Includes: Current and historical Medications Current Medications (continue as prescribed) Benicar 20 MG OR TABS 06/07/2013 Provider: Diagnosis: Last Documented On 06/07/2013 8:38AM By CHAZ MORRELL ; [facility] Estrace 1 MG OR TABS 06/07/2013 Provider: Diagnosis: Last Documented On 06/07/2013 8:38AM By CHAZ MORRELL ; [facility] metFORMIN HCl 500 MG TABS 06/07/2013 Provider: Diagnosis: Last Documented On 06/07/2013 8:39AM By CHAZ MORRELL ; [facility] Lipitor 10 MG OR TABS 06/07/2013 Provider: Diagnosis: Last Documented On 06/07/2013 8:39AM By CHAZ MORRELL ; [facility] Trilipix 135 MG OR CPDR 06/07/2013 Provider: Diagnosis: Last Documented On 06/07/2013 8:39AM By CHAZ MORRELL ; [facility] Aspirin 81 MG OR TABS 06/07/2013 Provider: Diagnosis: Last Documented On 06/07/2013 8:39AM By CHAZ MORRELL ; [facility] ZyrTEC Allergy 10 MG OR CAPS 06/07/2013 Provider: Diagnosis: Last Documented On 06/07/2013 8:40AM By CHAZ MORRELL ; [facility] Fish Oil OIL 06/07/2013 Provider: Diagnosis: Last Documented On 06/07/2013 8:40AM By CHAZ MORRELL ; [facility] Medications Administered Includes: Administered Medications in patient's chart No Administered Medications Recorded Results Includes: Results from 10/01/2024 through 10/01/2025 No Results Recorded For Specified Dates History of Present Illness History of Present Illness not supported for this document type No History of Present Illness Recorded Social History Description Last Updated Age of 1st intercourse was was 17 2012 Last Documented On 3 11:01AM ; [facility] Alcohol use occ 06/07/2013 Last Documented On 3 11:01AM ; [facility] Cigarette smoking 06/07/2013 Last Documented On 3 11:01AM ; [facility] Exercising regularly 06/07/2013 Last Documented On 3 11:01AM ; [facility] In monogamous relationship 06/07/2013 Last Documented On 3 11:01AM ; [facility] Not using drugs 06/07/2013 Last Documented On 3 11:01AM ; [facility] Sexually active 06/07/2013 Last Documented On 3 11:01AM ; [facility] Sexually active with 1 partners in the l ast year 06/07/2013 Last Documented On 3 11:01AM ; [facility] Smoking status : Current everyday smoker 06/07/2013 Last Documented On 3 11:01AM ; [facility] Procedures and Surgical History Surgical History Last Updated History of total abdominal hysterectomy 1988 DYSPLASIA 06/07/2013 Last Documented On 3 11:01AM ; [facility] Surgical / procedural histor y saliva gland removed 2000 ~left ankle break repair 2010 ~neck fusion 2005 ~left ankle total replacement 201106/07/2013 Last Documented On 3 11:01AM ; [facility] History of hysterectomy 1988 1988 2012 Last Documented On 3 11:01AM ; [facility] Medical History Includes: Medical History in patient's chart Description Last Updated History of cervical dysplasia 06/07/2013 Last Documented On 3 11:01AM ; [facility] History of human papilloma virus infecti on 06/07/2013 Last Documented On 3 11:01AM ; [facility] History of benign essential hypertension 06/07/2013 Last Documented On 3 11:01AM ; [facility] History of type 2 diabetes mellitus 04/2013 Last Documented On 3 11:01AM ; [facility] Vaginal delivery 06/07/2013 Last Documented On 3 11:01AM ; [facility] History of hyperlipidemia 06/07/2013 Last Documented On 3 11:01AM ; [facility] History of obesity 06/07/2013 Last Documented On 3 11:01AM ; [facility] A colonoscopy was performed 04/2013 Last Documented On 3 11:01AM ; [facility] 3 06/07/2013 Last Documented On 3 11:01AM ; [facility] History of menopause 06/07/2013 Last Documented On 3 11:01AM ; [facility] Last mammogram date: 200906/07/2013 Last Documented On 3 11:01AM ; [facility] Last pap smear date 200906/07/2013 Last Documented On 3 11:01AM ; [facility] LMP: 1988 06/07/2013 Last Documented On 3 11:01AM ; [facility] Para 3 06/07/2013 Last Documented On 3 11:01AM ; [facility] Family History Includes: Family History in patient's chart Description Last Updated Spouse name: Derek 06/07/2013 Last Documented On 3 11:01AM ; [facility] Family history of hypercholesterolemia d ad 06/07/2013 Last Documented On 3 11:01AM ; [facility] Family history of hypertension mom and d ad 06/07/2013 Last Documented On 3 11:01AM ; [facility] Review of Systems Review of Systems not supported for this document type No Review of Systems Recorded Mental Status Description Oriented to time, place, and person No anxiety A desire to continue living Functional Status No Functional Status Recorded Physical Exam Physical Exam not supported for this document type No Physical Exam Recorded Allergies Includes: Active, inactive, and resolved Allergies Substance Type Reaction Onset Date Resolved Date Statu s SEASONAL Allergy 06/07/2013 Active Last Documented On 3 8:40AM ; [facility] Clinical Notes Includes: Signed Clinical Notes starting from 11/21/2022 No Clinical Notes Recorded
--- OUTSIDE RECORDS SUMMARY | 2025-10-01 15:22 | XMS_ITS | Encounter Summary ---
Author Organization [facility] Address [address] [place] [address] Phone Care Team Providers Care Child Support Agent Name Role Phone Erik Davis MD Primary Care Provider [phone] Kentrell Fenton MD Unavailable Shankar Álvarez MD Unavailable [phone] Eugenio Thomason MD Unavailable [phone] Arnaldo Headley MD Unavailable [phone] Estefani Thorne APRN, CNP Unavailable Juanjose Woodson MD Unavailable Reason for Visit * Reason Comments Medication Refill Encounter Details Date Type Department Care Team (Late st Contact Info) Description 10/21/2021 Refill [facility] [address] [place] [address] Erik Davis MD [address] [address] Medication Refill Social History Tobacco Use Types [...] Telephone Encounter - Cecilia Chairez RN - 10/22/2021 7:39 AM CST Medication failed the protocol, provider to review and approve the medication order if appropriate. Requested Prescriptions Pending Prescriptions Disp Refills atorvastatin (LIPITOR) 10 MG Tablet [Pharmacy Med Name: ATORVASTATIN 10 MG TABLET] 45 Tablet 1 Sig: TAKE 1 TABLET BY MOUTH EVERY OTHER DAY Not Delegated - Off Protocol Failed - 10/21/2021 12:02 AM Failed - This refill cannot be delegated Passed - Visit with relevant provider in past 12 months or upcoming 90 days Recent Visits Date Type Provider Dept 08/05/21 Office Visit Erik Davis MD [facility] 03/05/21 Office Visit Erik Davis MD [facility] 12/03/20 Office Visit Erik Davis MD [facility] Showing recent visits within past 365 days and meeting all other requirements Future Appointments Date Type Provider Dept 11/18/21 Appointment Erik Davis MD [facility] Showing future appointments within next 90 days and meeting all other requirements Hmg CoA Reductase Inhibitors Protocol Passed - 10/21/2021 12:02 AM Passed - Visit with relevant provider in past 12 months or upcoming 90 days Recent Visits Date Type Provider Dept 08/05/21 Office Visit Erik Davis MD [facility] 03/05/21 Office Visit Erik Davis MD [facility] 12/03/20 Office Visit Erik Davis MD [facility] Showing recent visits within past 365 days and meeting all other requirements Future Appointments Date Type Provider Dept 11/18/21 Appointment Erik Davis MD [facility] Showing future appointments within next 90 days and meeting all other requirements Passed - Lipid panel in past 12 months LDL Date Value Ref Range Status 01/11/2021 76 5 - 130 mg/dL Final HDL CHOLESTEROL Date Value Ref Range Status 01/11/2021 38.4 (L) >40 mg/dL Final CHOLESTEROL Date Value Ref Range Status 01/11/2021 143 <=200 mg/dL Final TRIGLYCERIDES Date Value Ref Range Status 01/11/2021 143 <150 mg/dL Final VLDL Date Value Ref Range Status 01/11/2021 29 5 - 55 mg/dL Final CHOL/HDL RATIO Date Value Ref Range Status 01/11/2021 3.7 0.0 - 4.4 Final NON-HDL CHOLESTEROL Date Value Ref Range Status 01/11/2021 104.6 <130 mg/dL Final PROOF DOOR MAKER documented in this encounter Plan of Treatment Upcoming Encounters Date Type Department Care Team (Late st Contact Info) Description 11/14/2025 1:45 PM FIREPROOF DOOR MAKER Office Visit [facility] - Family Medicine [facility] [address] [place] [address] Erik Davis MD [address] [address] 12/11/2025 8:15 AM FIREPROOF DOOR MAKER Office Visit [facility] - Endocrinology [facility] [address] [place] [address] Kentrell Fenton MD [address] [address] 03/06/2026 10:00 AM CDT Office Visit [facility] [address] [place] [phone] Eugenio Thomason MD [address] [place] [address] Discharge Disposition: Discharged to home or Selfcare documented as of this encounter Visit Diagnoses Not on filedocumented in this encounter Additional Health Concerns Assessment Noted Time PHQ-9 Depression Total Score: 0 05/08/20 20 1:06 PM CDT documented as of this encounter Care Teams Child Support Agent Relationship Specialty Start Date End Date Erik Davis MD [address] [facility] [address] [place] [address] PCP - General Family Medicine 10/17/15 Kentrell Fenton MD [address]2 [facility] [address] [place] [id number] Consulting Physician Endocrinology 08/22/22 Shankar Álvarez MD [address] [place] [address] Consulting Physician Medical Oncology 10/28/22 Eugenio Thomason MD [address] [place] [address] Consulting Physician Radiation Oncology 10/28/22 Arnaldo Headley MD [address] [facility] [address] [place] [address] Consulting Physician Otolaryngology 10/31/22 Estefani Thorne APRN, MOBILE PATROL OFFICER [address] [facility] [address] [place] [address] Nurse Practitioner Advanced Practice Nurse 05/27/22 Juanjose Woodson MD [address] [facility] [address] [place] [address] Consulting Physician Colon and Rectal Surgery 03/21/24 documented as of this encounter
--- OUTSIDE RECORDS SUMMARY | 2025-10-01 15:22 | XMS_ITS | Encounter Summary ---
Author Organization [facility] Address [address] [place] [address] Phone Care Team Providers Care Outreach Coordinator Name Role Phone Erik Davis MD Primary Care Provider [phone] Kentrell Fetnon MD Unavailable Shankar Álvarez MD Unavailable Eugenio Thomason MD Unavailable Arnaldo Headley MD Unavailable Estefani Thorne APRN, CNP Unavailable Juanjose Woodson MD Unavailable Reason for Visit * Reason Comments Medication Refill Encounter Details Date Type Department Care Team (Late st Contact Info) Description 10/05/2021 Refill [facility] [address] [place] [address] Erik Davis MD [address] [address] Medication Refill Social History Tobacco Use Types [...] Exposure Response Date Recorded In the last month, have you been in contact with someone who was confirmed or suspected to have Coronavirus / COVID-19? No / Unsure 09/16/2021 9:25 AM PAMPHLET DISTRIBUTOR documented as of this encounter Miscellaneous Notes * Telephone Encounter - Cecilia Chairez RN - 10/07/2021 8:20 AM CST Medication failed the protocol, provider to review and approve the medication order if appropriate. Requested Prescriptions Pending Prescriptions Disp Refills estradiol (ESTRACE) 1 MG Tablet [Pharmacy Med Name: ESTRADIOL 1 MG TABLET] 90 Tablet 3 Sig: TAKE 1 TABLET BY MOUTH EVERY DAY Not Delegated - Estrogen and Estrogen Combinations Protocol Failed - 10/05/2021 12:12 AM Failed - This refill cannot be delegated Failed - Up to date with pap smear Health Maintenance Passed - Visit with relevant provider in past 12 months or upcoming 90 days Recent Visits Date Type Provider Dept 08/05/21 Office Visit Erik Davis MD [facility] 03/05/21 Office Visit Erik Davis MD [facility] 12/03/20 Office Visit Erik Davis MD [facility] Showing recent visits within past 365 days and meeting all other requirements Future Appointments Date Type Provider Dept 11/18/21 Appointment Erik Davis MD [facility] Showing future appointments within next 90 days and meeting all other requirements HLET DISTRIBUTOR documented in this encounter Plan of Treatment Upcoming Encounters Date Type Department Care Team (Late st Contact Info) Description 11/14/2025 1:45 PM PAMPHLET DISTRIBUTOR Office Visit [facility] - Family Medicine - [place] [address] [place] [address] Erik Davis MD [address] [address] 12/11/2025 8:15 AM PAMPHLET DISTRIBUTOR Office Visit [facility] - Endocrinology - [employer] [address] [place] [address] Kentrell Fenton MD #[address] [address] 03/06/2026 10:00 AM CDT Office Visit [facility] - Cancer Center Oncology Services [address] [place] [phone] Eugenio Thomason MD [address] [place] [address] Discharge Disposition: Discharged to home or Selfcare documented as of this encounter Visit Diagnoses Not on filedocumented in this encounter Additional Health Concerns Assessment Noted Time PHQ-9 Depression Total Score: 0 05/08/20 20 1:06 PM CDT documented as of this encounter Care Teams Outreach Coordinator Relationship Specialty Start Date End Date Erik Davis MD #[address] [address] PCP - General Family Medicine 10/17/15 Kentrell Fenton MD #[address] [address] Consulting Physician Endocrinology 08/22/22 Shankar Álvaerz MD [address] [place] [address] Consulting Physician Medical Oncology 10/28/22 Eugenio Thomason MD [address] [place] [address] Consulting Physician Radiation Oncology 10/28/22 Arnaldo Headley MD [address] [address] Consulting Physician Otolaryngology 10/31/22 Estefani Thorne APRN, DOMESTIC FREIGHT FORWARDER [address] [facility] [address] [place] [address] Nurse Practitioner Advanced Practice Nurse 05/27/22 Juanjose Woodson MD [address]2 [facility] [address] [place] [address] Consulting Physician Colon and Rectal Surgery 03/21/24 documented as of this encounter
--- OUTSIDE RECORDS SUMMARY | 2025-10-01 15:22 | XMS_ITS | Encounter Summary ---
Author Organization [facility] Address [address] [place] [address] Phone Care Team Providers Care Rn L And D Name Role Phone Erik Davis MD Primary Care Provider [phone] Kentrell Fenton MD Unavailable Shankar Álvarez MD Unavailable Eugenio Thomason MD Unavailable [phone] Arnaldo Headley MD Unavailable Estefani Thorne APRN, CNP Unavailable Juanjose Woodson MD Unavailable Reason for Visit * Reason Comments Medication Refill Encounter Details Date Type Department Care Team (Late st Contact Info) Description 10/19/2021 Refill [facility] [address] [place] [address] Erik Davis MD #[address] [address] Medication Refill Social History Tobacco Use Types [...] Telephone Encounter - Cecilia Chairez RN - 10/21/2021 10:16 AM CST Medication failed the protocol, provider to review and approve the medication order if appropriate. Requested Prescriptions Pending Prescriptions Disp Refills metoprolol Succinate (TOPROL-XL) 25 MG TABLET SR 24 HR [Pharmacy Med Name: METOPROLOL SUCC ER 25 MGTAB] 90 Tablet 1 Sig: TAKE 1 TABLET BY MOUTH EVERY DAY Not Delegated - Off Protocol Failed - 10/19/2021 12:10 AM Failed - This refill cannot be [...] 90 days and meeting all other requirements Beta-Blockers Protocol Passed - 10/19/2021 12:10 AM Passed - BP on record in the past year Clinician-entered: BP Readings from Last 3 Encounters: 08/05/21 110/66 03/05/21 132/80 12/25/20 128/74 Patient-entered: No data recorded Passed - Visit [...] Dept 11/18/21 Appointment Erik Davis MD [facility] Showing future appointments within next 90 days and meeting all other requirements R ELECTRIC LOCOMOTIVE documented in this encounter Plan of Treatment Upcoming Encounters Date Type Department Care Team (Late st Contact Info) Description 11/14/2025 1:45 PM FIRER ELECTRIC LOCOMOTIVE Office Visit [facility] Medical [facility] - Family Medicine - [place] [address] [place] [address] Erik Davis MD #2 [facility] [address] [place] [address] 12/11/2025 8:15 AM FIRER ELECTRIC LOCOMOTIVE Office Visit [facility] - Endocrinology - [place] [address] [place] [address] Kentrell Fenton MD #2 [facility] [address] [place] [address] 03/06/2026 10:00 AM CDT Office Visit [facility] Oncology Services [address] [place] [address] Eugenio Thomason MD [address] [place] [address] Discharge Disposition: Discharged to home or Selfcare documented as of this encounter Visit Diagnoses Not on filedocumented in this encounter Additional Health Concerns Assessment Noted Time PHQ-9 Depression Total Score: 0 05/08/20 1:06 PM CDT documented as of this encounter Care Teams Rn L And D Relationship Specialty Start Date End Date Erik Davis MD #2 [facility] [address] [place] [address] PCP - General Family Medicine 10/17/15 Kentrell Fenton MD #2 [facility] [address] [place] [address] Consulting Physician Endocrinology 08/22/22 Shankar Álvarez MD [address] [place] [address] Consulting Physician Medical Oncology 10/28/22 Eugenio Thomason MD [address] [place] [address] Consulting Physician Radiation Oncology 10/28/22 Arnaldo Headley MD [address] [address] Consulting Physician Otolaryngology 10/31/22 Estefani Thorne APRN, MAC ARTIST #2 [facility] [address] [place] [address] Nurse Practitioner Advanced Practice Nurse 05/27/22 Juanjose Woodson MD #[address] [address] Consulting Physician Colon and Rectal Surgery 03/21/24 documented as of this encounter
--- OUTSIDE RECORDS SUMMARY | 2025-10-01 15:22 | XMS_ITS | Encounter Summary ---
Author Organization [facility] Address [address] [place] [address] Phone Care Team Providers Care Legal Executive Name Role Phone Erik Davis MD Primary Care Provider [phone] Kentrell Fenton MD Unavailable Shankar Álvarez MD Unavailable Eugenio Thomason MD Unavailable Arnaldo Headley MD Unavailable [phone] Estefani Thorne APRN, CNP Unavailable Juanjose Woodson MD Unavailable Reason for Visit * Reason Comments Medication Refill Encounter Details Date Type Department Care Team (Late st Contact Info) Description 11/13/2022 Refill [facility] - Family Medicine [facility] #2 [place] [address] Erik Davis MD #[address] [address] Medication Refill Social History Tobacco Use Types [...] suspected to have Coronavirus/COVID-19? No / Unsure 11/14/2022 11:55 AM SCHOLARSHIP COUNSELOR documented as of this encounter Miscellaneous Notes * Telephone Encounter - Mi Jewell RN - 11/13/2022 10:17 AM SCHOLARSHIP COUNSELOR Medication failed the protocol, provider to review and approve the medication order if appropriate. Requested Prescriptions Pending Prescriptions Disp Refills atorvastatin (LIPITOR) 10 MG Tablet [Pharmacy Med Name: ATORVASTATIN 10 MG TABLET] 45 Tablet 1 Sig: TAKE 1 TABLET BY MOUTH EVERY OTHER DAY Hmg CoA Reductase Inhibitors Protocol Failed - 11/13/2022 12:03 AM Failed - Lipid panel in past [...] Range Status 01/11/2021 104.6 <130 mg/dL Final Passed - Visit with relevant provider [...] 90 days and meeting all other requirements metoprolol Succinate (TOPROL-XL) 25 MG TABLET SR 24 HR [Pharmacy Med Name: METOPROLOL SUCC ER 25 MGTAB] 90 Tablet 1 Sig: TAKE 1 TABLET BY MOUTH EVERY DAY Beta-Blockers Protocol Passed - 11/13/2022 12:03 AM Passed - BP on record in the past year Clinician-entered: BP Readings from Last 3 Encounters: 10/29/22 118/88 10/20/22 168/80 09/09/22 152/90 Patient-entered: No data recorded Passed - Visit [...] 90 days and meeting all other requirements LARSHIP COUNSELOR documented in this encounter Plan of Treatment Upcoming Encounters Date Type Department Care Team (Late st Contact Info) Description 11/14/2025 1:45 PM SCHOLARSHIP COUNSELOR Office Visit [facility] - Family Medicine - [place] [address] [place] [address] Erik Davis MD [address] [address] 12/11/2025 8:15 AM SCHOLARSHIP COUNSELOR Office Visit [facility] - Endocrinology - [place] #[address] [place] [address] Kentrell Fenton MD #[address] [address] 03/06/2026 10:00 AM CDT [facility] [address] [place] [address] Eugenio Thomason MD [address] [place] [address] Discharge Disposition: Discharged to home or Selfcare documented as of this encounter Visit Diagnoses Not on filedocumented in this encounter Additional Health Concerns Assessment Noted Time PHQ-9 Depression Total Score: 0 05/08/20 20 1:06 PM CDT documented as of this encounter Care Teams Legal Executive Relationship Specialty Start Date End Date Erik Davis MD #[address] [address] PCP - General Family Medicine 10/17/15 Kentrell Fenton MD #[address] [address] Consulting Physician Endocrinology 08/22/22 Shankar Álvarez MD [address] [place] [address] Consulting Physician Medical Oncology 10/28/22 Eugenio Thomason MD [address] [place] [address] Consulting Physician Radiation Oncology 10/28/22 Arnaldo Headley MD [address] [address] Consulting Physician Otolaryngology 10/31/22 Estefani Thorne APRN, EMERITA #2 [facility] [address] [place] [address] Nurse Practitioner Advanced Practice Nurse 05/27/22 Juanjose Woodson MD #2 [facility] [address] [place] [address] Consulting Physician Colon and Rectal Surgery 03/21/24 documented as of this encounter
--- OUTSIDE RECORDS SUMMARY | 2025-10-01 15:22 | XMS_ITS | Encounter Summary ---
Author Organization [facility] Address [address] [place] [address] Phone Care Team Providers Care Machinist Supervisor Name Role Phone Erik Davis MD Primary Care Provider [phone] Kentrell Fenton MD Unavailable Shankar Álvarez MD Unavailable Eugenio Thomason MD Unavailable Arnaldo Headley MD Unavailable Estefani Thorne APRN, MIX MAKER Unavailable Juanjose Woodson MD Unavailable Encounter Details Date Type Department Care Team (Late st Contact Info) Description 11/04/2021 Transcribe Orders [facility] Patient Access Admitting 1 [place] [address] Sanford Norris MD #2 [place] [address] Social History Tobacco Use Types Packs/Day Years [...] have Coronavirus / COVID-19? No / Unsure 11/04/2021 10:54 AM WEAPONS MECHANIC documented as of this encounter Plan of Treatment Upcoming Encounters Date Type Department Care Team (Late st Contact Info) Description 11/14/2025 1:45 PM WEAPONS MECHANIC Office Visit [facility] #2 [place] [address] Erik Davis MD #2 [facility] [address] [place] [address] 12/11/2025 8:15 AM WEAPONS MECHANIC Office Visit [facility] Endocrinology [facility] #2 [place] [address] Kentrell Fenton MD #2 [facility] [address] [place] [address] 03/06/2026 10:00 AM CDT Office Visit [facility] Oncology Services [address] [place] [address] Eugenio Thomason MD [address] [place] [address] Discharge Disposition: Discharged to home or Selfcare documented as of this encounter Visit Diagnoses Not on filedocumented in this encounter Additional Health Concerns Assessment Noted Time PHQ-9 Depression Total Score: 0 05/08/20 20 1:06 PM CDT documented as of this encounter Care Teams Machinist Supervisor Relationship Specialty Start Date End Date Erik Davis MD #2 [facility] [address] [place] [address] PCP - General Family Medicine 10/17/15 Kentrell Fenton MD #[address] [address] Consulting Physician Endocrinology 08/22/22 Shankar Álvarez MD [address] [place] [address] Consulting Physician Medical Oncology 10/28/22 Eugenio Thomason MD [address] [place] [address] Consulting Physician Radiation Oncology 10/28/22 [place] [address] [place] [address] Consulting Physician Otolaryngology 10/31/22 Estefani Thorne APRN, MIX MAKER #2 [facility] [address] [place] [address] Nurse Practitioner Advanced Practice Nurse 05/27/22 Juanjose Woodson MD #[address] [address] Consulting Physician Colon and Rectal Surgery 03/21/24 documented as of this encounter
--- OUTSIDE RECORDS SUMMARY | 2025-10-01 15:22 | XMS_ITS | Encounter Summary ---
Author Organization [facility] Address [address] [place] [address] Phone Care Team Providers Care Digital Technician Name Role Phone Erik Davis MD Primary Care Provider [phone] Kentrell Fenton MD Unavailable Shankar Álvarez MD Unavailable [phone] Eugenio Thomason MD Unavailable [phone] Arnaldo Headley MD Unavailable Estefani Thorne APRN, CNP Unavailable Juanjose Woodson MD Unavailable Reason for Referral * Radiology Services (Routine) - Closed Specialty Diagnoses / Procedures Referred By Debbie armstrong Referred To Contact Radiology Diagnoses Thyroid nodule Abnormal thyroid ultrasound Procedures US THYROID Erik Davis MD #[address] [address] Phone: tel: fax: Referral ID Status Reason Start Date Expiration Date Visits Re quested Visits Authorized [id number] Closed 12/01/2021 1 1 DE CONTRACTOR SALES Reason for Visit * Reason Comments Medication Refill Encounter Details Date Type Department Care Team (Late st Contact Info) Description 12/01[facility] [address] [place] [address] Erik Davis MD #[address] [address] Medication Refill Social History Tobacco Use Types [...] COVID-19? No / Unsure 11/04/2021 10:54 AM INSIDE CONTRACTOR SALES documented as of this encounter Plan of Treatment Upcoming Encounters Date Type Department Care Team (Late st Contact Info) Description 11/14/2025 1:45 PM INSIDE CONTRACTOR SALES Office Visit [facility] - Family Medicine [facility] #2 [place] [address] Erik Davis MD #[address] [address] 12/11/2025 8:15 AM INSIDE CONTRACTOR SALES Office Visit [facility] - Endocrinology - [place] #2 [place] [address] Kentrell Fenton MD #[address] [address] 03/06/2026 10:00 AM CDT [facility] [address] [place] [address] Eugenio Thomason MD [address] [place] [address] Discharge Disposition: Discharged to home or Selfcare documented as of this encounter Results * US THYROID (06/03/2022 9:58 AM CDT) Anatomical Region Laterality Modality BODY N/A Ultrasound 06/04/2022 10:0 5 AM CDT Impressions 06/04/2022 10:08 AM CDT IMPRESSION: 1. Multiple bilateral thyroid nodules that are grossly similar in size and appearance compared to 11/04/2021. The most concerning is a TI-RADS category 4 nodule in the superior right lobe. 2. Right neck lesion lateral to the right thyroid lobe with a possible cystic component detailed above. This is not definitively evaluated on this exam and soft tissue neck CT with contrast may be beneficial for further evaluation if clinically indicated. REFERENCE: According to the ACR Thyroid Imaging, Reporting and Data System (TI-RADS): White Paper of the ACR TI-RADS Committee Mar, 2017 recommendations regarding the management of thyroid nodules are as follows: 1. TI-RADS 1: Risk of malignancy <2%, no FNA or follow up required. 2. TI-RADS 2: Risk of malignancy <2%, no FNA or follow up required. 3. TI-RADS 3: Risk of malignancy 2%-5%. Nodules 1.5 cm follow up at 1, 3 and 5 years recommended, for nodules 2.5 cm FNA recommended. 4. TI-RADS 4: Risk of malignancy 5%-20% Nodules 1.0 cm follow up at 1, 2, 3 and 5 years recommended, for nodules 1.5 cm FNA recommended 5. TI-RADS 5: Risk of malignancy >20%. Nodules 0.5 cm annual follow up for 5 years recommended, for nodules 1.0 cm FNA recommended. Narrative 06/04/2022 10:08 AM CDT EXAM DESCRIPTION: US THYROID REASON FOR STUDY: Nontoxic single thyroid nodule TECHNIQUE: Ultrasound of the thyroid was performed with grayscale and color doppler. COMPARISON: Thyroid ultrasound 11/04/2021 FINDINGS: RIGHT: The right thyroid lobe measures 6.3 x 1.8 x 1.5 cm. Heterogeneous thyroid echotexture. Multiple grossly unchanged right lobe nodules with 3 measured. R1-superior lobe hypoechoic nodule with irregular margins and internal calcifications measuring 1.3 x 1.1 x 0.9 cm, prior 1 x 1.1 x 0.8 cm. R2- mid lobe calcification measuring 0.3 x 0.2 x 0.3 cm. R3-mid lobe mixed cystic/solid hypoechoic nodule with smooth margins and internal echogenic foci measuring 1.0 x 0.6 x 0.9 cm. Redemonstrated right neck lesion lateral to the right thyroid lobe measuring 1.5 x 1.5 x 1.2 cm and is hypoechoic, smoothly marginated, with several associated hyperechoic foci. There is a cystic area inferior to the lesion measuring 1.6 x 0.9 x 0.9 cm. This area is seen but not measured on the prior exam. Indeterminate but could represent an exophytic thyroid nodule with discrete extrathyroidal lesion of completely excluded. LEFT: The left thyroid lobe is not discretely measured on this exam. Heterogeneous echotexture. Several unchanged nodules which are grossly unchanged and with 3 measured. L1-mid lobe mixed cystic/solid isoechoic smoothly marginated nodule measuring 0.9 x 0.5 x 0.6 cm. L2-medial mid lobe mixed cystic/solid hypoechoic nodule with internal hyperechoic foci measuring 0.9 x 0.5 x 0.6 cm. L3-inferior lobe microcalcifications measuring up to 1 x 0.7 x 1.1 cm. ISTHMUS: The isthmus measures cm in AP dimension. The isthmus is normal in echotexture. VASCULARITY: Normal. OTHER: No other significant finding. THIS IS AN ELECTRONICALLY VERIFIED FINAL REPORT 06/04/2022 10:05 AM - Electronically signed by Ti Verdugo M.D. AG: NISHI Report ID: [id number] Reading Location: [id number] Procedure Note Ti Verdugo MD - 06/04/2022 EXAM DESCRIPTION: US THYROID REASON FOR STUDY: Nontoxic single thyroid nodule TECHNIQUE: Ultrasound of the thyroid was performed with grayscale and color doppler. COMPARISON: Thyroid ultrasound 11/04/2021 FINDINGS: RIGHT: The right thyroid lobe measures 6.3 x 1.8 x 1.5 cm. Heterogeneous thyroid echotexture. Multiple grossly unchanged right lobe nodules with 3 measured. R1-superior lobe hypoechoic nodule with irregular margins and internal calcifications measuring 1.3 x 1.1 x 0.9 cm, prior 1 x 1.1 x 0.8 cm. R2- mid lobe calcification measuring 0.3 x 0.2 x 0.3 cm. R3-mid lobe mixed cystic/solid hypoechoic nodule with smooth margins and internal echogenic foci measuring 1.0 x 0.6 x 0.9 cm. Redemonstrated right neck lesion lateral to the right thyroid lobe measuring 1.5 x 1.5 x 1.2 cm and is hypoechoic, smoothly marginated, with several associated hyperechoic foci. There is a cystic area inferior to the lesion measuring 1.6 x 0.9 x 0.9 cm. This area is seen but not measured on the prior exam. Indeterminate but could represent an exophytic thyroid nodule with discrete extrathyroidal lesion of completely excluded. LEFT: The left thyroid lobe is not discretely measured on this exam. Heterogeneous echotexture. Several unchanged nodules which are grossly unchanged and with 3 measured. L1-mid lobe mixed cystic/solid isoechoic smoothly marginated nodule measuring 0.9 x 0.5 x 0.6 cm. L2-medial mid lobe mixed cystic/solid hypoechoic nodule with internal hyperechoic foci measuring 0.9 x 0.5 x 0.6 cm. L3-inferior lobe microcalcifications measuring up to 1 x 0.7 x 1.1 cm. ISTHMUS: The isthmus measures cm in AP dimension. The isthmus is normal in echotexture. VASCULARITY: Normal. OTHER: No other significant finding. THIS IS AN ELECTRONICALLY VERIFIED FINAL REPORT 06/04/2022 10:05 AM - Electronically signed by Ti Verdugo M.D. AG: NISHI Report ID: [id number] Reading Location: [id number] IMPRESSION: 1. Multiple bilateral thyroid nodules that are grossly similar in size and appearance compared to 11/04/2021. The most concerning is a TI-RADS category 4 nodule in the superior right lobe. 2. Right neck lesion lateral to the right thyroid lobe with a possible cystic component detailed above. This is not definitively evaluated on this exam and soft tissue neck CT with contrast may be beneficial for further evaluation if clinically indicated. REFERENCE: According to the ACR Thyroid Imaging, Reporting and Data System (TI-RADS): White Paper of the ACR TI-RADS Committee Mar, 2017 recommendations regarding the management of thyroid nodules are as follows: 1. TI-RADS 1: Risk of malignancy <2%, no FNA or follow up required. 2. TI-RADS 2: Risk of malignancy <2%, no FNA or follow up required. 3. TI-RADS 3: Risk of malignancy 2%-5%. Nodules 1.5 cm follow up at 1, 3 and 5 years recommended, for nodules 2.5 cm FNA recommended. 4. TI-RADS 4: Risk of malignancy 5%-20% Nodules 1.0 cm follow up at 1, 2, 3 and 5 years recommended, for nodules 1.5 cm FNA recommended 5. TI-RADS 5: Risk of malignancy >20%. Nodules 0.5 cm annual follow up for 5 years recommended, for nodules 1.0 cm FNA recommended. Erik Davis MD G US ORDERABLES Final R esult documented in this encounter Visit Diagnoses Diagnosis Thyroid nodule- Primary Nontoxic uninodular goiter Abnormal thyroid ultrasound Nonspecific abnormal results of thyroid function study Thyroid nodule Nontoxic uninodular goiter Abnormal thyroid ultrasound Nonspecific abnormal results of thyroid function study documented in this encounter Additional Health Concerns Assessment Noted Time PHQ-9 Depression Total Score: 0 05/08/20 20 1:06 PM CDT documented as of this encounter Care Teams Digital Technician Relationship Specialty Start Date End Date Erik Davis MD #2 [facility] [address] [place] [address] PCP - General Family Medicine 10/17/15 Kentrell Fenton MD #2 [facility] [address] [place] [address] Consulting Physician Endocrinology 08/22/22 Shankar Álvarez MD [address] [place] [address] Consulting Physician Medical Oncology 10/28/22 Eugenio Thomason MD [address] [place] [address] Consulting Physician Radiation Oncology 10/28/22 Arnaldo Headley MD [address] [address] Consulting Physician Otolaryngology 10/31/22 Estefani Thorne APRN, CNP #[address] [address] Nurse Practitioner Advanced Practice Nurse 05/27/22 Juanjose Woodson MD #[address] [address] Consulting Physician Colon and Rectal Surgery 03/21/24 documented as of this encounter
--- OUTSIDE RECORDS SUMMARY | 2025-10-01 15:22 | XMS_ITS | Encounter Summary ---
Author Organization [facility] Address [address] [place] [address] Phone Care Team Providers Care Braddisher Name Role Phone Erik Davis MD Primary Care Provider [phone] Kentrell Fenton MD Unavailable Shankar Álvarez MD Unavailable [phone] Eugenio Thomason MD Unavailable [phone] Arnaldo Headley MD Unavailable Estefani Thorne APRN, HAND I TUBE BENDER Unavailable Juanjose Woodson MD Unavailable Encounter Details Date Type Department Care Team (Late st Contact Info) Description 11/04/2021 Transcribe Orders [facility] Patient Access Admitting 1 [place] [address] Ivanna Mathur MD [address] [place], [place] [address] Social History Tobacco Use Types Packs/Day Years [...] COVID-19? 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 documented as of this encounter Plan of Treatment Upcoming Encounters Date Type Department Care Team (Late st Contact Info) Description 11/14/2025 1:45 PM WIRELESS SALES ASSOCIATE Office Visit [facility] Family Medicine [facility]3] #2 [place] [address] Erik Davis MD #2 [facility] [address] [place] [address] 12/11/2025 8:15 AM WIRELESS SALES ASSOCIATE Office Visit [facility] Endocrinology [facility]3] #2 [place] [address] Kentrell Fenton MD #2 [facility] [address] [place] [address] 03/06/2026 10:00 AM CDT Office Visit [facility] Oncology Services [address] [place] [address] Eugenio Thomason MD [address] [place] [address] Discharge Disposition: Discharged to home or Selfcare documented as of this encounter Visit Diagnoses Not on filedocumented in this encounter Additional Health Concerns Assessment Noted Time PHQ-9 Depression Total Score: 0 05/08/20 20 1:06 PM CDT documented as of this encounter Care Teams Braddisher Relationship Specialty Start Date End Date Erik Davis MD #2 [facility] [address] [place] [address] PCP - General Family Medicine 10/17/15 Kentrell Fenton MD #[address] [address] Consulting Physician Endocrinology 08/22/22 Shankar Álvarez MD [address] [place] [address] Consulting Physician Medical Oncology 10/28/22 Eugenio Thomason MD [address] [place] [address] Consulting Physician Radiation Oncology 10/28/22 Arnaldo Headley MD [address] [place] [address] Consulting Physician Otolaryngology 10/31/22 Estefani Thorne APRN, HAND I TUBE BENDER #[address] [address] Nurse Practitioner Advanced Practice Nurse 05/27/22 Juanjose Woodson MD #[address] [address] Consulting Physician Colon and Rectal Surgery 03/21/24 documented as of this encounter
--- OUTSIDE RECORDS SUMMARY | 2025-10-01 15:22 | XMS_ITS | Encounter Summary ---
Author Organization [facility] Address [address] [place] [address] Phone Care Team Providers Care Hospital Carrier Name Role Phone Erik Davis MD Primary Care Provider [phone] Kentrell Fenton MD Unavailable Shankar Álvarez MD Unavailable [phone] Eugenio Thomason MD Unavailable Arnaldo Headley MD Unavailable Estefani Thorne APRN, FACILITY ENVIRONMENTAL TECHNICIAN Unavailable Juanjose Woodson MD Unavailable Reason for Visit * Reason Comments Medication Refill Encounter Details Date Type Department Care Team (Late st Contact Info) Description 09/29/2023 Refill [facility] - Family Medicine [facility] [address] [place] [address] Erik Davis MD [address] [address] Medication Refill Social History Tobacco Use Types [...] Telephone Encounter - Cecilia Chairez RN - 09/29/2023 10:50 AM CST Medication failed the protocol, provider to review and approve the medication order if appropriate. Requested Prescriptions Pending Prescriptions Disp Refills losartan (COZAAR) 25 MG Tablet [Pharmacy Med Name: LOSARTAN POTASSIUM 25 MG TAB] 180 Tablet 3 Sig: TAKE 1 TABLET BY MOUTH TWICE A DAY ARB Protocol Passed - 09/29/2023 12:09 AM Passed - Serum potassium on record in past 12 months POTASSIUM Date Value Ref Range Status 12/31/2022 3.8 3.5 - 5.1 mmol/L Final Passed - BP on record in the past year Clinician-entered: BP Readings from Last 3 Encounters: 08/10/23 132/82 08/03/23 156/84 06/02/23 (!) 149/92 Patient-entered: No data recorded Passed - Visit with relevant provider in past year or upcoming 90 days Recent Visits Date Type Provider Dept 08/03/23 Office Visit Erik Davis MD [facility] 03/09/23 Office Visit [facility] [...] Ref Range Status 12/31/2022 >60 >=60 Final metFORMIN (GLUCOPHAGE) 500 MG Tablet [Pharmacy Med Name: METFORMIN HCL 500 MG TABLET] 90 Tablet 3 Sig: TAKE 1 TABLET BY MOUTH EVERY DAY Biguanides Protocol Failed - 09/29/2023 12:09 AM Failed - HgA1C on record in past 6 months HGB-A1C Date Value Ref Range Status 12/31/2022 5.9 4.0 - 6.0 % Final Failed - GFR on record in past 6 months GFR, EST. NONAFRICAN Date Value Ref Range Status 12/31/2022 >60 >=60 Final Passed - Visit with relevant provider in past 6 months or upcoming 90 days Recent Visits Date Type Provider Dept 08/03/23 Office Visit Erik Davis MD [facility] Showing recent visits within past 182 days and meeting all other requirements Future Appointments No visits were found meeting these conditions. Showing future appointments within next 90 days and meeting all other requirements IBILITY EXAMINER documented in this encounter Plan of Treatment Upcoming Encounters Date Type Department Care Team (Late st Contact Info) Description 11/14/2025 1:45 PM ELIGIBILITY EXAMINER Office Visit [facility] Family Medicine - [place] [address] [place] [address] Erik Davis MD [address] [facility] [address] [place] [address] 12/11/2025 8:15 AM ELIGIBILITY EXAMINER Office Visit [facility] - Endocrinology - [place] [address] [place] [address] Kentrell Fenton MD [address] [facility] [address] [place] [address] 03/06/2026 10:00 AM CDT Office Visit [facility] [address] [place] [address] Eugenio Thomason MD [address] [place] [address] Discharge Disposition: Discharged to home or Selfcare documented as of this encounter Visit Diagnoses Not on filedocumented in this encounter Additional Health Concerns Assessment Noted Time PHQ-9 Depression Total Score: 0 05/08/20 20 1:06 PM CDT documented as of this encounter Care Teams Hospital Carrier Relationship Specialty Start Date End Date Erik Davis MD [address] [facility] [address] [place] [address] PCP - General Family Medicine 10/17/15 Kentrell Fenton MD [address] [facility] [address] [place] [id number] Consulting Physician Endocrinology 08/22/22 Shankar Álvarez MD [address] [place] [address] Consulting Physician Medical Oncology 10/28/22 Eugenio Thomason MD [address] [place] [address] Consulting Physician Radiation Oncology 10/28/22 Arnaldo Headley MD [address] [address] Consulting Physician Otolaryngology 10/31/22 Estefani Thorne APRN, FACILITY ENVIRONMENTAL TECHNICIAN [address] [facility] [address] [place] [address] Nurse Practitioner Advanced Practice Nurse 05/27/22 Juanjose Woodson MD [address] [facility] [address] [place] [address] Consulting Physician Colon and Rectal Surgery 03/21/24 documented as of this encounter
[2025-10-01 15:29] VITALS: BP 149/81; PULSE 83; RESP 20; TEMP 36.9; O2SAT 100
--- NOTE | 2025-10-01 15:43 | ED.UPPEXIN ---
HPI - Extremity Injury (Upper) General Chief Complaint: Extremity Injury, Upper Stated Complaint: left wrist injury Time Seen by Provider: 10/01/25 15:43 Source: patient and RN notes reviewed Mode of arrival: ambulatory Limitations: no limitations History of Present Illness HPI narrative: 65-year-old female presents Express Care complaining of left wrist injury. Patient says she was outside shoveling snow when she slipped on the ice and fell landing on her left wrist and forearm. Patient reports pain swelling to her left wrist. Patient denies hitting her head, loss of consciousness, neck pain, back pain, dizziness, lightheadedness, nausea, vomiting, chest pain breathing problems, or any other symptoms or injuries. Patient reports a history of hypothyroidism, hyperlipidemia, hypertension and diabetes. Related Data Home Medications ?Medication ?Instructions ?Recorded ?Confirmed ?Last Taken ?Type atorvastatin 10 mg tablet 1 mg PO Q48H 04/24/24 08/16/24 Unknown History estradiol 1 mg tablet 1 mg PO DAILY 04/24/24 08/16/24 Unknown History losartan 25 mg tablet 25 mg PO BID 04/24/24 08/16/24 Unknown History metoprolol succinate 25 mg 25 mg PO DAILY 04/24/24 08/16/24 Unknown History tablet,extended release 24 hr levothyroxine 137 mcg tablet mcg 10/01/25 Unknown History tirzepatide 10 mg/0.5 mL mg subcut 10/01/25 Unknown History subcutaneous pen injector (Mounjaro) Allergies Allergy/AdvReac Type Severity Reaction Status Date / Time codeine AdvReac Severe Nausea and Verified 10/01/25 15:25 Vomiting tramadol (From Ultram) AdvReac Severe Nausea and Verified 10/01/25 15:25 Vomiting Review of Systems Review of Systems: CONSTITUTIONAL: Denies fever, chills, or sweats. EYES: Denies visual changes, redness, or discharge. ENT: Denies rhinorrhea, congestion, sore throat, or otalgia. CARDIOVASCULAR: Denies chest pain, palpitations, or edema. RESPIRATORY: Denies cough or dyspnea. GASTROINTESTINAL: Denies abdominal pain, nausea, vomiting, or diarrhea. GENITOURINARY: Denies dysuria or hematuria. SKIN: Denies rash, wound, or itching. MUSCULOSKELETAL: Denies back pain, joint pain, or myalgia. Positive for left wrist/forearm injury and swelling NEUROLOGIC: Denies headache, numbness, or weakness. PSYCHIATRIC: Denies anxiety or depression. All other systems reviewed are negative, except as documented in HPI. [facility] Past Medical History Medical History Post-menopausal Diabetes Hypertension Surgical History Surgical History History of foot surgery right History of fusion of cervical spine History of thyroidectomy Family History Family History Father , multiple myeloma No problems noted. Mother , chronic myeloid leukemia No problems noted. Sibling No problems noted. Social History Social History Years smoked: 45 Smoking status: Current every day smoker Tobacco type: cigarettes Second hand tobacco smoke exposure: Yes Alcohol intake: current Alcohol use details: occasionally Substance use: current Substance use type: marijuana Other substance usage details: gummies Lack of Transportation: No Lack of Food: Never True Current Housing: I Have Housing Concerned About Future Housing: No Difficulty Paying Gas/Electric Bills: No Difficulty Paying for Meds: No Currently Unemployed: No Education: Trade/Vocational Certificate Difficulty w/ Childcare or Family Care: No Living arrangements: with family Occupation/Education: retired Additional occupation/education comments: [employer] 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 There is no relevant family history pertinent to the patient complaint. Exam Narrative: GENERAL: This is a well-nourished, well-developed adult, in no apparent distress. They are non ill-appearing, nontoxic appearing. HEAD: normocephalic, atraumatic. EYES: Sclera clear/white. Vision is grossly intact. Conjunctiva normal. Extraocular movement intact. EARS: External ears normal Hearing grossly intact. NOSE: External nose normal THROAT: Mucous membranes moist NECK: Neck supple CARDIOVASCULAR: Regular rate and rhythm RESPIRATORY: Respiratory rate normal, respiratory effort nonlabored, no respiratory distress NEURO: awake, alert, and oriented to person, place and time. There were no obvious focal neurologic abnormalities. EXTREMITIES: Left wrist: No obvious deformity, injury, swelling, bruising, redness. Normal range of motion. No bony tenderness. Capillary refill less than 3 seconds. Left radial Pulse 2 +palpable. Normal sensation. Neurovascular status intact distal injury. Patient can make a fist, thumbs-up sign, okay sign, stop sign. Radial, ulnar, median distribution intact. BACK: Nontender without deformity. Course Course Emergency Course: Portions of this record may have been created with voice recognition software Level of Care: Express Care Visit Vital Signs Vital signs: Vital Signs Temperature 98.5 F 10/01/25 15:29 Pulse Rate 83 10/01/25 15:29 Respiratory Rate 20 10/01/25 15:29 Blood Pressure 149/81 H 10/01/25 15:29 Pulse Oximetry 100 10/01/25 15:29 Oxygen Delivery Room Air 10/01/25 15:29 Temperature 98.5 F 10/01/25 15:29 Pulse Rate 83 10/01/25 15:29 Respiratory Rate 20 10/01/25 15:29 Blood Pressure 149/81 H 10/01/25 15:29 Pulse Oximetry 100 10/01/25 15:29 Oxygen Delivery Room Air 10/01/25 15:29 Reviewed Procedures Orthopedic Splinting/Casting Injury #1: Splinting/Casting Date: 10/01/25 Splinting/Casting Time: 16:24 Side: left Upper Extremity Injury Location: wrist Splint: customized in ED Pre-Formed: sling OCL: sugar tong Pre-Procedure Neuro Vascular Exam: normal Post-Procedure Neuro Vascular Exam: normal Additional Comments: Patient tolerated procedure well. MDM - Extremity Injury (Upper) [facility] Narrative Medical decision making narrative: X-ray of left wrist and forearm shows a nondisplaced fracture of the distal radius. Patient placed in sugar-tong splint. Discussed supportive care. Will refer patient promotions specialist ortho. Discussed physical exam findings. Advised supportive measures and signs/symptoms to go to the ER. Pt is appropriate for outpt treatment and f/u. Differential Diagnosis Differential diagnosis: Likely sprain and strain of wrist, fracture of wrist and other (Radial fracture, fibular fracture, contusion) Imaging Data Radiologist's impression: ITS Impressions Forearm X-Ray 10/01/25 16:06 Impression: Distal radial fracture Wrist X-Ray 11/30/25 16:07 Impression: Distal radial fracture Critical Care Time Critical Care Time Critical Care Time: No Discharge Plan Discharge Clinical Impression: Fall Qualifiers: Encounter type: initial encounter Qualified Code(s): W19.XXXA - Unspecified fall, initial encounter Distal radial fracture Qualifiers: Encounter type: initial encounter Fracture type: closed Fracture morphology: unspecified fracture morphology Laterality: left Qualified Code(s): S52.502A - Unspecified fracture of the lower end of left radius, initial encounter for closed fracture Patient Disposition: Home Condition: Stable Instructions: Wrist Fracture in Adults (ED) Additional Instructions: The x-ray of your left wrist and forearm revealed nondisplaced fracture of the left wrist. Rest and elevate the affected arm; use a sling for comfort. Wear the Splint at all times. Keep it dry and covered when showering, do not let it get wet. Apply ice 15-20 minute intervals several times a day You may take ibuprofen 600 mg to 800 mg every 6-8 hours. Do not exceed more than 800 mg of ibuprofen per dose. Do not exceed more than 3200 mg ibuprofen in a day. You may take up to 1000 mg Tylenol every 6-8 hours. Do not exceed 1000 mg per dose, do exceed more than 4000 mg of Tylenol in a day. Follow up with your orthopedist in 3-5 days. To the ER for any serious concerns, severe pain, worsening swelling, numbness, tingling, cold or blue fingers. Patient Language: Armenian Prescriptions: No Action atorvastatin 10 mg tablet 1 mg PO Q48H losartan 25 mg tablet 25 mg PO BID estradiol 1 mg tablet 1 mg PO DAILY metoprolol succinate 25 mg tablet extended release 24 hr 25 mg PO DAILY levothyroxine 137 mcg tablet Mounjaro 10 mg/0.5 mL pen injector SUBCUT Follow-up/Referrals: Ryan,Erik Calabrese MD [Primary Care Provider, Unknown] Jeff Huynh MD [Physician, Orthopedics] - 3 Days Clinical Impression: Distal radial fracture Time of Disposition: 15:45
== END 2025-10-01 16:55 | disposition home or self-care (01) ==
PROVIDERS: PCP Family Medicine
DX: S52.502A Unspecified fracture of the lower end of left radius, initial encounter for closed fracture (principal); W00.0XXA Fall on same level due to ice and snow, initial encounter; Y93.H1 Activity, digging, shoveling and raking; I10 Essential (primary) hypertension; E11.9 Type 2 diabetes mellitus without complications; Z79.85 Long-term (current) use of injectable non-insulin antidiabetic drugs; E03.9 Hypothyroidism, unspecified; E78.5 Hyperlipidemia, unspecified; F17.210 Nicotine dependence, cigarettes, uncomplicated
CPT/HCPCS: 29125; 73090; 73110; 99214; A4565; G0463